=== PATIENT | female | born 1990 | race Caucasian/White ===

== ENCOUNTER → 2019-07-12 16:53 | Outpatient (BNVA) | payer OTHER, SELFPAY | PROVIDERS: Family Provider Family Medicine; PCP Family Medicine; Visit Provider Family Medicine | DX: R05 Cough (principal); R50.9 Fever, unspecified; R52 Pain, unspecified; J45.21 Mild intermittent asthma with (acute) exacerbation; J98.8 Other specified respiratory disorders; B97.89 Other viral agents as the cause of diseases classified elsewhere | CPT/HCPCS: 87804 ==

== ENCOUNTER 2020-01-19 20:58 | Observation (INO) | payer OTHER, BC, SELFPAY ==
[2020-01-19 21:15] VITALS: PULSE 92; RESP 18; TEMP 37.1; O2SAT 97
[2020-01-19 21:33] LABS: Basophils # 0.1 10^3/uL (0.0-0.1); Basophils % 0.6 %; Eosinophils # 0.1 10^3/uL (0.0-0.8); Eosinophils % 0.9 %; Hematocrit 42.3 % (37.0-47.0); Hemoglobin 14.4 g/dL (11.5-15.3); Lymphocytes # 1.6 10^3/uL (0.8-4.8); Lymphocytes % 9.8 %; Mean Corpuscular Hemoglobin 31.2 pg (28.0-34.0); Mean Corpuscular Volume 91.8 fL (81-99); Mean Platelet Volume 11.4 fL (7.4-10.4); Monocytes # 0.9 10^3/uL (0.2-0.9); Monocytes % 5.5 %; Neutrophils # 13.54 10^3/uL (1.8-7.7); Neutrophils % 82.8 %; Nucleated Red Blood Cells % 0 %; Platelet Count 200 10^3/cmm (130-400); Red Blood Count 4.61 10^6/uL (4.1-5.3); Red Cell Distribution Width 12.4 % (12.1-15.1); White Blood Count 16.3 10^3/uL (4.0-10.0)
--- NOTE | 2020-01-19 21:43 | CTR_ITS ---
PROCEDURE INFORMATION: Exam: CT Abdomen And Pelvis With Contrast Exam date and time: 01/19/2020 9:46 PM Age: 29 years old Clinical indication: Abdominal pain; Localized; Right lower quadrant (rlq); Prior surgery; Surgery type: , hysto; Additional info: Rlq pain TECHNIQUE: Imaging protocol: Computed tomography of the abdomen and pelvis with intravenous contrast. Radiation optimization: All CT scans at this facility use at least one of these dose optimization techniques: automated exposure control; mA and/or kV adjustment per patient size (includes targeted exams where dose is matched to clinical indication); or iterative reconstruction. Contrast material: OMNI 300; Contrast volume: 95 ml; Contrast route: INTRAVENOUS (IV); COMPARISON: CT abdomen pelvis w con* [id number] 11/24/2018 3:44 PM RADIATION DOSE METRICS: Total DLP (mGy-cm): 636.29 FINDINGS: Lungs: The lung bases are clear. Liver: The liver is slightly fatty but not enlarged. Gallbladder and bile ducts: Normal. No calcified stones. No ductal dilation. Pancreas: Normal. No ductal dilation. Spleen: Normal. No splenomegaly. Adrenals: Normal. No mass. Kidneys and ureters: Normal. No hydronephrosis. Stomach and bowel: Unremarkable. No obstruction. No mucosal thickening. Appendix: The appendix is enlarged up to 10 mm and has a thickened, enhancing wall. There is no appendicolith or perforation. Intraperitoneal space: No free fluid. Vasculature: Unremarkable. No abdominal aortic aneurysm. Lymph nodes: Unremarkable. No enlarged lymph nodes. Bladder: Unremarkable as visualized. Reproductive: Unremarkable as visualized. Bones/joints: Unremarkable. No acute fracture. Soft tissues: Unremarkable. CT/CT abdomen pelvis w con* [id number] IMPRESSION: Acute appendicitis. No perforation or abscess. Radiation Dose CTDIVOL = (mGy): DLP = 636.29 (mGy-cm)
[2020-01-19 21:45] LABS: HCG Qualitative Urine. Negative (Negative)
[2020-01-19 21:52] LABS: Alanine Aminotransferase 20 U/L (0-33); Alkaline Phosphatase 73 IU/L (35-105); Anion Gap 15.5 (5-19); Aspartate Amino Transferase 30 U/L (0-32); Blood Urea Nitrogen 13 mg/dL (6-20); Calcium 10.1 mg/dL (8.5-10.5); Carbon Dioxide 24 mmol/L (22-29); Chloride 103 mmol/L (98-107); Creatinine Clr Calc Pharmacy 81.5955; Globulin 2.5 g/dL (1.3-4.6); Glomerular Filtration Rate 73.5 mL/min (90-130); Glucose 94 mg/dL (65-115); Lipase 23 U/L (13-60); Osmolality Calculated 284 mOsm/kg (285-295); Potassium 3.5 mmol/L (3.5-5.1); Sodium 139 mmol/L (136-145); Total Bilirubin 0.4 mg/dL (0.15-1.2); Total Protein 7.5 g/dL (6.6-8.7)
--- NOTE | 2020-01-19 21:55 | W.ED.ABDPA2 ---
HPI - Abdominal Pain General: Chief Complaint: Abdominal Pain Stated Complaint: abd pain Time Seen by Provider: 01/19/20 21:38 Source: patient Mode of arrival: ambulatory Limitations: no limitations History of Present Illness: MD elicited complaint: abdominal pain Pertinent past history: none Onset (ago): hour(s) (3) Pain Consistency: constant Location: RLQ Severity: severe Quality: stabbing Radiation: none Migration to: no migration Exacerbating factors: other (Standing up and laying down flat) Relieving factors: other (Sitting up) Associated Symptoms: Reports anorexia, chills and nausea; Denies change in bowel habits, change in stool character, coffee ground emesis, constipation, GI cramping, diarrhea, dyspepsia, dysuria, fever(s), hematuria, hematemesis and vomiting Review of Systems General: Reports: 10 or more systems reviewed and unremarkable except in HPI and below Const: Reports: chills; Denies: fever(s) Eyes: Denies: change in vision or blurry vision ENMT: Denies: throat pain, enlarged tonsils, odynophagia, hoarseness, mouth pain or swelling of lips/tongue Card: Denies: palpitations, irregular heart rhythm, edema or swelling of feet/ankles Resp: Denies: dyspnea, productive cough or non-productive cough GI: Reports: abdominal pain and nausea; Denies: vomiting, hematemesis, coffee ground emesis, diarrhea, constipation, GI cramping, change in bowel habits or change in stool character : Denies: dysuria or hematuria Musc: Denies: neck pain, back pain or extremity swelling Skin/Breast: Denies: rash, pruritus or erythema Neuro: Denies: headache(s), numbness in extremities or weakness in extremities Endo: Denies: polyuria, polydipsia or tired all the time PFSH ED PFSH: Medical History Anxiety and depression Follows up with Dr. Ovalles for this. Does not see a therapist. States that symptoms are well-controlled on medication. Hot flashes due to surgical menopause Surgical History History of delivery X 2 2010-Performed by Dr Mcgovern at [facility] in [place], [place] 2017-performed by Dr. Ovalles at [facility] in [place] History of hysterectomy Total laparoscopic hysterectomy, bilateral salpingo-oophorectomy , cystoscopy for chronic pelvic pain and endometriosis on 03/23/[address] Plaza at [facility]. Pathology showed 174 g uterus with cervix with nabothian cysts and focal endometriosis on the peritoneum. The endometrium showed proliferative endometrium with adenomyosis in the myometrium. Bilateral tubes were benign with the left ovary showing an endometrioma and the right ovary being benign. History of laparoscopy Diagnostic laparoscopy with peritoneal biopsies done on 07/13/[address] Plaza at [facility] for chronic pelvic pain. During surgery signs of endometriosis-stage I were noted. Biopsies were done on the peritoneum which showed connective tissue without histopathological changes. Ovarian biopsy done showed hemorrhagic cysts consistent with endometriosis. No postoperative complications noted. History of tonsillectomy and adenoidectomy 09/09/05-tonsillectomy and adeniodectomy. dx: obstructive sleep apnea symptoms secondary to adenotonsillar hypertrophy. 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 [employer] Additional social history: Well balanced diet Physical Exam Const: COMMON NORMALS: average body habitus, patient oriented x3, no limitations, healthy appearing, alert and well nourished GENERAL APPEARANCE: in distress HENMT: COMMON NORMALS: normocephalic, atraumatic and moist oral mucous membranes HEAD & SCALP: normocephalic and atraumatic Neck/C-Spine: COMMON NORMALS: no meningeal signs and no JVD Resp: COMMON NORMALS: normal respiratory effort, No retractions, No use of accessory muscles, clear to auscultation bilaterally and percussion normal AUSCULTATION: clear to auscultation bilaterally PERCUSSION: percussion normal Cardio: COMMON NORMALS: no JVD, regular rate, regular rhythm, S1 normal heart sound present, S2 normal heart sound present, No gallops present (Cardio), No clicks present (Cardio), No murmurs present (Cardio), No rub (Cardio) and Peripheral pulses 2+ throughout RATE: regular rate RHYTHM: regular rhythm HEART SOUNDS: S1 normal heart sound present and S2 normal heart sound present PERIPHERAL PULSES: Peripheral pulses 2+ throughout GI: COMMON NORMALS: Normal to inspection, nondistended, normoactive bowel sounds present, Soft to palpation, No hepatosplenomegaly present, no masses and no bruits PALPATION: Yes Soft to palpation, Yes Tenderness to palpation present (GI) Details: RLQ, Yes No hepatosplenomegaly present and Yes Rebound tenderness present : COMMON NORMALS: Yes no CVA tenderness BLADDER/KIDNEY EXAM: Yes no CVA tenderness Back/Pelvis: COMMON NORMALS: no CVA tenderness Extremity: COMMON NORMALS: normal to inspection, full ROM, capillary refill normal, no calf tenderness and no pedal edema Neuro: COMMON NORMALS: patient oriented x3 SENSORIUM/ORIENTATION: Yes alert MENINGEAL SIGNS: Yes no meningeal signs Course Reevaluation(s): Reevaluation #1: Discussed her lab and imaging findings with her. Discussed that she has acute appendicitis and will need surgical intervention. Also discussed my conversation with the surgeon on-call. She voiced understanding and is in agreement with the plan. She is currently comfortable and does not require any more pain medicine. Her is on the phone and was part of the conversation. Time: 22:55 Consultations: Consultation #1: Discussed with Dr. Dong, surgeon. Admit the patient and he will see the patient in the morning. Time: 22:50 Vital Signs: Vital signs: Vital Signs Temperature 98.8 F 01/19/20 21:15 Pulse Rate 92 01/19/20 21:15 Respiratory Rate 20 H 01/19/20 22:22 Pulse Oximetry 97 01/19/20 21:15 MDM - Abdominal Pain MDM Narrative: Medical decision making narrative: 29-year-old female patient who came in with right lower quadrant abdominal pain of a few hours duration. Examination, CT scan findings are consistent with acute appendicitis and she is admitted to the general surgery service for further evaluation and surgery in the morning. Differential Diagnosis: Differential diagnosis abdominal pain: Likely acute appendicitis, calculus of kidney and diverticulitis Medical Records: Attestation: I reviewed the patient's medical records. Lab Data: Attestation: I reviewed the patient's lab results. Labs: Lab Results 01/19/20 01/19/20 01/19/20 Range/Units 21:15 21:15 21:30 WBC 16.3 H (4.0-10.0) 10^3/ uL RBC 4.61 (4.1-5.3) 10^6/u L Hgb 14.4 (11.5-15.3) g/dL Hct 42.3 (37.0-47.0) % MCV 91.8 (81-99) fL MCH 31.2 (28.0-34.0) pg MCHC 34.0 (30.0-36.0) g/dL RDW 12.4 (12.1-15.1) % Plt Count 200 (130-400) 10^3/c mm MPV 11.4 H (7.4-10.4) fL Neut % (Auto) 82.8 % Lymph % (Auto) 9.8 % Armstrong % (Auto) 5.5 % Eos % (Auto) 0.9 % Baso % (Auto) 0.6 % Neut # (Auto) 13.54 H (1.8-7.7) 10^3/u L Lymph # (Auto) 1.6 (0.8-4.8) 10^3/u L Armstrong # (Auto) 0.9 (0.2-0.9) 10^3/u L Eos # (Auto) 0.1 (0.0-0.8) 10^3/u L Baso # (Auto) 0.1 (0.0-0.1) 10^3/u L Nucleated RBC % (a uto) 0 % Nucleated RBCs # 0.0 /100WBC Sodium 139 (136-145) mmol/L Potassium 3.5 (3.5-5.1) mmol/L Chloride 103 (98-107) mmol/L Carbon Dioxide 24 (22-29) mmol/L Anion Gap 15.5 (5-19) BUN 13 (6-20) mg/dL Creatinine 0.9 (0.5-0.9) mg/dL GFR Calculation 73.5 L (90-130) mL/min Glucose 94 (65-115) mg/dL Calculated Osmolal ity 284 L (285-295) mOsm/k g Calcium 10.1 (8.5-10.5) mg/dL Total Bilirubin 0.4 (0.15-1.2) mg/dL AST 30 (0-32) U/L ALT 20 (0-33) U/L Alkaline Phosphata se 73 (35-105) IU/L Total Protein 7.5 (6.6-8.7) g/dL Albumin 5.0 (3.5-5.2) g/dL Globulin 2.5 (1.3-4.6) g/dL Lipase 23 (13-60) U/L HCG, Qual Negative (Negative) Imaging Data ^: CT Abd/Pel: Radiologist's impression: [place] [address] CT Scan Report Signed with Addenda Patient: Larry Melendrez #: [id number] : 1990Acct#:[id number] Age/Sex: Date: [birth year] [facility] Attending Dr: Ordering Provider/Ordering MD: Cody Castelan MD, [facility] Date of Service: 01/19/20 Procedure(s): CT abdomen pelvis w con* [id number] Accession Number(s): [id number] Report Number: [id number]/CT abdomen pelvis w con* [id number] The findings were verbally communicated via telephone conference with CODY CASTELAN at 10:48 PM CDT on 01/19/2020. The findings were acknowledged and understood. Radiation Dose CTDIVOL = (mGy): DLP = 636.29 (mGy-cm) Addendum Dictated By: Bharat Baumann MD Addendum Signed By: [facility]at [facility] Date/Time:01/19/20 [id number] Addendum Cosigned By: PROCEDURE INFORMATION: Exam: CT Abdomen And Pelvis With Contrast Exam date and time: 01/19/2020 9:46 PM Age: 29 years old Clinical indication: Abdominal pain; Localized; Right lower quadrant (rlq); Prior surgery; Surgery type: , hysto; Additional info: Rlq pain TECHNIQUE: Imaging protocol: Computed tomography of the abdomen and pelvis with intravenous contrast. Radiation optimization: All CT scans at this facility use at least one of these dose optimization techniques: automated exposure control; mA and/or kV adjustment per patient size (includes targeted exams where dose is matched to clinical indication); or iterative reconstruction. Contrast material: OMNI 300; Contrast volume: 95 ml; Contrast route: INTRAVENOUS (IV); COMPARISON: CT abdomen pelvis w con* [id number] 11/24/2018 3:44 PM RADIATION DOSE METRICS: Total DLP (mGy-cm): 636.29 FINDINGS: Lungs: The lung bases are clear. Liver: The liver is slightly fatty but not enlarged. Gallbladder and bile ducts: Normal. No calcified stones. No ductal dilation. Pancreas: Normal. No ductal dilation. Spleen: Normal. No splenomegaly. Adrenals: Normal. No mass. Kidneys and ureters: Normal. No hydronephrosis. Stomach and bowel: Unremarkable. No obstruction. No mucosal thickening. Appendix: The appendix is enlarged up to 10 mm and has a thickened, enhancing wall. There is no appendicolith or perforation. Intraperitoneal space: No free fluid. Vasculature: Unremarkable. No abdominal aortic aneurysm. Lymph nodes: Unremarkable. No enlarged lymph nodes. Bladder: Unremarkable as visualized. Reproductive: Unremarkable as visualized. Bones/joints: Unremarkable. No acute fracture. Soft tissues: Unremarkable. CT/CT abdomen pelvis w con* [id number] IMPRESSION: Acute appendicitis. No perforation or abscess. Radiation Dose CTDIVOL = (mGy): DLP = 636.29 (mGy-cm) Dictated By:Bharat Baumann MD Signed By:Bharat Baumannigned Date/Time:01/19/202246 DD/ 45 Discharge Plan Discharge Patient Disposition: Admitted As Inpatient Clinical Impression: Acute appendicitis Condition: Stable Prescriptions: No Action citalopram 20 mg tablet 20 mg PO DAILY RF: 0 albuterol sulfate 2.5 mg /3 mL (0.083 %) solution for nebulization 2.5 mg INHALATION Q4H MDD 4 vials PRN (Reason: shortness of breath or wheezing) Qty: 75 RF: 0 estradiol 1 mg tablet 1 mg PO DAILY Qty: 30 RF: 6 Referrals: Ayo Ovalles MD [Primary Care Provider] - Coding Level of Care Code 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
[2020-01-19] MEDS: ondansetron 2 mg/ML SDV 2 mL 4 MG IVP (22:15)
[2020-01-19] MEDS: sodium chloride 0.9% 1,000 ML 999 ML IV (22:16)
[2020-01-19 22:22] VITALS: RESP 20
[2020-01-19] MEDS: fentaNYL 50 mcg/mL INJ 2mL IVP (22:22)
[2020-01-19] MEDS: iohexol 300 mg/mL 100 mL Btl IV (22:28)
[2020-01-19 23:04] LABS: Lactate (Lactic Acid level) 0.9 mmol/L (0.5-2.2)
[2020-01-19] MEDS: piperacillin-tazobactam 3.375 GM in sodium chloride 0.9% (plus) 50 ML IV (23:35)
[2020-01-19 23:51] LABS: Add Urine Microscopic? NO
[2020-01-20] VITALS (16 sets, daily range): BP systolic 99–141; BP diastolic 63–87; PULSE 59–87; RESP 15–21; TEMP 36.4–36.8; O2SAT 94–100
[2020-01-20] MEDS: fentaNYL 50 mcg/mL INJ 2mL IVP (00:04)
[2020-01-20 00:09] LABS: Bilirubin Urine Neg (NEGATIVE); Blood Urine Neg (Negative); Glucose Urine UA Norm (Normal); Ketones Urine Negative (Negative); Leukocyte Esterase Urine Negative (Negative); Nitrate Urine Negative (Negative); Protein Urine Neg (Negative); Specific Gravity, Urine 1.005 (1.005-1.030); Urine Appearance Clear (CLEAR); Urine Color Colorless (Yellow); Urobilinogen Urine Norm (Negative); pH Urine 6.5 (5-7)
[2020-01-20] MEDS: ondansetron 2 mg/ML SDV 2 mL 4 MG IVP (00:10)
[2020-01-20 00:30] LABS: C Reactive Protein 3.7 mg/L (0.0-4.9)
[2020-01-20] MEDS: sodium chloride 0.9% 1,000 ML 150 ML IV ×2 (01:38→03:45)
[2020-01-20 03:43] LABS: Basophils # 0.1 10^3/uL (0.0-0.1); Basophils % 0.4 %; Eosinophils # 0.2 10^3/uL (0.0-0.8); Eosinophils % 1.5 %; Hematocrit 36.2 % (37.0-47.0); Hemoglobin 11.9 g/dL (11.5-15.3); Lymphocytes # 2.4 10^3/uL (0.8-4.8); Lymphocytes % 20.7 %; Mean Corpuscular HGB Conc 32.9 g/dL (30.0-36.0); Mean Corpuscular Hemoglobin 30.2 pg (28.0-34.0); Mean Corpuscular Volume 91.9 fL (81-99); Mean Platelet Volume 11.7 fL (7.4-10.4); Monocytes # 0.6 10^3/uL (0.2-0.9); Monocytes % 5.3 %; Neutrophils # 8.46 10^3/uL (1.8-7.7); Neutrophils % 71.8 %; Nucleated Red Blood Cells % 0 %; Platelet Count 169 10^3/cmm (130-400); Red Blood Count 3.94 10^6/uL (4.1-5.3); Red Cell Distribution Width 12.3 % (12.1-15.1); White Blood Count 11.8 10^3/uL (4.0-10.0)
[2020-01-20] MEDS: HYDROmorphone 1 mg/mL INJ 1 mL 2 MG IVP (03:44)
[2020-01-20 04:08] LABS: Anion Gap 11.9 (5-19); Blood Urea Nitrogen 10 mg/dL (6-20); Calcium 8.4 mg/dL (8.5-10.5); Carbon Dioxide 23 mmol/L (22-29); Chloride 107 mmol/L (98-107); Glomerular Filtration Rate 98.3 mL/min (90-130); Glucose 96 mg/dL (65-115); Osmolality Calculated 282 mOsm/kg (285-295); Potassium 3.9 mmol/L (3.5-5.1); Sodium 138 mmol/L (136-145)
[2020-01-20] MEDS: piperacillin-tazobactam 3.375 GM in sodium chloride 0.9% (plus) 50 ML IV (06:22)
--- NOTE | 2020-01-20 06:54 | P.HP_ITS ---
Providers/Chief Complaint Admitting Physician: Seth Dnog MD Primary Care Provider: Ayo Ovalles MD Chief Complaint: abd pain History of Present Illness Rosa Melendrez is a 29 year old female who was in her usual state of health until around 6:30 PM last night when she noticed the fairly abrupt onset of some right lower quadrant abdominal pain. This was followed by nausea but no vomiting. She says that she had some chills but never did have a fever. Her pain persisted and she came to the emergency room last night. A CAT scan showed changes consistent with acute appendicitis. Review of Systems General: Reports: 10 or more systems reviewed and unremarkable except in HPI and below Const: Reports: chills; Denies: fever(s) GI: Reports: abdominal pain and nausea; Denies: vomiting or change in stool character Psych: Reports: anxiety Medications/Allergies Home Medications Medication Instructions Recorded Confirmed Last Taken Type citalopram 20 mg tablet 20 mg PO DAILY tab 07/07/19 01/20/20 01/18/20 20:00 History estradiol 1 mg tablet 1 mg PO DAILY #30 tab 10/04/19 01/20/20 01/18/20 20:00 Rx Allergies Allergy/AdvReac Type Severity Reaction Status Date / Time morphine AdvReac ADR-Shakine Verified 01/20/20 03:54 ss PFSH Acute PFSH: Medical History (Updated 01/20/20 @ 06:58 by Seth Dong MD) Anxiety and depression Follows up with Dr. Ovalles for this. Does not see a therapist. States that symptoms are well-controlled on medication. History of endometriosis Hot flashes due to surgical menopause Surgical History History of delivery X 2 2010-Performed by Dr Mcgvoern at [facility] in [place], [place] 2017-performed by Dr. Ovalles at [facility] in [place] History of hysterectomy Total laparoscopic hysterectomy, bilateral salpingo-oophorectomy , cystoscopy for chronic pelvic pain and endometriosis on 03/23/[address] Plaza at [facility]. Pathology showed 174 g uterus with cervix with nabothian cysts and focal endometriosis on the peritoneum. The endometrium showed proliferative endometrium with adenomyosis in the myometrium. Bilateral tubes were benign with the left ovary showing an endometrioma and the right ovary being benign. History of laparoscopy Diagnostic laparoscopy with peritoneal biopsies done on 07/13/[address] Plaza at [facility] for chronic pelvic pain. During surgery signs of endo metriosis-stage I were noted. Biopsies were done on the peritoneum which showed connective tissue without histopathological changes. Ovarian biopsy done showed hemorrhagic cysts consistent with endometriosis. No postoperative complications noted. History of tonsillectomy and adenoidectomy 09/09/05-tonsillectomy and adeniodectomy. dx: obstructive sleep apnea symptoms secondary to adenotonsillar hypertrophy. 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 Additional social history: Well balanced diet Vitals/I&O/Wt Last Vital Signs Temp 97.7 F 01/20/20 03:56 Pulse 59 L 01/20/20 03:56 Resp 18 01/20/20 03:56 BP 99/64 01/20/20 03:56 Pulse Ox 99 01/20/20 03:56 01/19/20 01/19/20 01/20/20 14:59 22:59 06:59 Intake Total 317.5 / 317.5 Output Total 300 / 300 Balance 17.5 / 17.5 Weight last 48 hrs Weight 146 lb Physical Exam Narrative: EXAM NARRATIVE: The patient was encountered in her hospital room. She does not appear to be in any distress. The pupils are equal. No carotid bruits are heard. The lungs are clear anteriorly. The heart is regular. The abdomen is mildly obese and reveals bowel sounds but they are hypoactive. Rovsing's sign is positive. The point of maximum tenderness is in the right lower quadrant at McBurney's point or slightly below. No obvious masses are palpated. The extremities reveal no edema. Neurologically the patient appears to be grossly intact. Data : 01/20/20 03:00 01/20/20 03:00 CT Abd/Pel: Radiologist's impression: CT abdomen/pelvis 01/19/2020 iMPRESSION: Acute appendicitis. No perforation or abscess. A&P Assessment and plan (1) Acute appendicitis: I agree with the CT assessment of acute appendicitis. I discussed appendicitis with the patient in detail. Both medical and surgical methods of management were gone over. Surgical risks of bleeding, infection, internal organ injury, etc. were all discussed. The patient seems to understand and would prefer to undergo an appendectomy today. The patient has been without any solid food since yesterday. I will make arrangements for a laparoscopic or possibly open appendectomy today. Status: Acute Qualifiers: Acute appendicitis type: with localized peritonitis Appendicitis abscess presence: without abscess Appendicitis gangrene presence: without grace grene Appendicitis perforation presence: without perforation Qualified Code(s): K35.30 - Acute appendicitis with localized peritonitis, without perf oration or gangrene Attestations Medical Necessity Statement*: Based on my medical assessment, presenting symptoms and consideration of the scope of surgical therapy, I expect this patient will require treatment in the hospital for a period of time spanning less than 2 midnights, and is therefore being placed in observation status. 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
[2020-01-20] MEDS: sodium chloride 0.9% 1,000 ML 30 ML IV (07:53)
--- NOTE | 2020-01-20 08:34 | P.ANESASSM_ITS ---
Pre-Anesthetic Assessment Pre-Anesthetic Assessment: Height/Weight: Height 1.57 m Weight 66.224 kg Temp Pulse Resp BP Pulse Ox 97.6 F 80 18 109/66 100 01/20/20 07:37 01/20/20 07:37 01/20/20 07:37 01/20/20 07:37 01/20/20 07:37 Preop Diagnosis: appy Proposed Procedure: Operation Date: 01/20/20 11:10 Proposed Procedures p Laparoscopic Appendectomy(Not Applicable) - Seth Dong MD Familial anesthetic complications: none Was Beta Lily taken within 24 hours: N/A Last intake: Intake Last Liquid Date 01/19/20 Last Liquid Time 19:00 Last Solid Date 01/19/20 Last Solid Time 12:00 Last Intake: 19:00 Social: Social History: Tobacco and No alcohol Packs per day: 1/2 Pack years: 15 Exam: Pre-Anes Outpt Exam: alert, oriented x 3, clear to auscultation bilaterally and regular rate & rhythm Airway: Submandibular: WNL Cervical ROM: WNL MP: 1 Dentition: Full Pulmonary: Pulmonary: None reported CV/HEM: CV/HEM: None reported : : None reported Hepatic: Hepatic: None reported GI: GI: None reported Metabolic: Metabolic: None reported Musc/skel: Musc/skel: None reported Neuropsych: Neuropsych: Anxiety and Depression Anesthetic Plan: ASA status: 2E Anesthesia: Anesthesia Evaluation and General Risk of > 500 ml blood loss (7ml/kg in children): No Meds/Allergies Current Medications: Current Medications Generic Name Dose Route Start Last Admin Trade Name Freq PRN Reason Stop Dose Admin Sodium Chloride 1,000 mls @ 150 m ls/hr 01/19/20 23:00 01/20/20 03:45 Sodium Chloride 0.9% IV 150 mls/hr .Q6H40M ROSA Administration Sodium Chloride 1,000 mls @ 30 ml s/hr 01/20/20 08:00 01/20/20 07:53 Sodium Chloride 0.9% IV 30 mls/hr .Q24H ROSA Administration Ondansetron HCl 4 mg 01/19/20 22:54 01/20/20 00:10 Zofran IVP 4 mg Q6H PRN Administration NAUSEA AND VOMITI NG PFSH Anesthesia PFSH: Medical History (Updated 01/20/20 @ 06:58 by Seth Dong MD) Anxiety and depression Follows up with Dr. Ovalles for this. Does not see a therapist. States that symptoms are well-controlled on medication. History of endometriosis Hot flashes due to surgical menopause Surgical History History of delivery X 2 2010-Performed by Dr Mcgovern at [facility] in [place], [place] 2017-performed by Dr. Ovalles at [facility] in [place] History of hysterectomy Total laparoscopic hysterectomy, bilateral salpingo-oophorectomy , cystoscopy for chronic pelvic pain and endometriosis on 03/23/[address] Plaza at [facility]. Pathology showed 174 g uterus with cervix with nabothian cysts and focal endometriosis on the peritoneum. The endometrium showed proliferative endometrium with adenomyosis in the myometrium. Bilateral tubes were benign with the left ovary showing an endometrioma and the right ovary being benign. History of laparoscopy Diagnostic laparoscopy with peritoneal biopsies done on 07/13/[address] Plaza at [facility] for chronic pelvic pain. During surgery signs of endometriosis-stage I were noted. Biopsies were done on the peritoneum which showed connective tissue without histopathological changes. Ovarian biopsy done showed hemorrhagic cysts consistent with endometriosis. No postoperative complications noted. History of tonsillectomy and adenoidectomy 09/09/05-tonsillectomy and adeniodectomy. dx: obstructive sleep apnea symptom s secondary to adenotonsillar hypertrophy. 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 [employer] Additional social history: Well balanced diet Data Anesthesia CBC & Chem 7: 01/20/20 03:00 01/20/20 03:00 Other Labs: Laboratory Results - last 48 hr 01/19/20 01/19/20 01/19/20 21:15 21:15 21:15 WBC 16.3 H RBC 4.61 Hgb 14.4 Hct 42.3 MCV 91.8 MCH 31.2 MCHC 34.0 RDW 12.4 Plt Count 200 MPV 11.4 H Neut % (Auto) 82.8 Lymph % (Auto) 9.8 [place] % (Auto) 5.5 Eos % (Auto) 0.9 Baso % (Auto) 0.6 Neut # (Auto) 13.54 H Lymph # (Auto) 1.6 [place] # (Auto) 0.9 Eos # (Auto) 0.1 Baso # (Auto) 0.1 Nucleated RBC % (auto) 0 Nucleated RBCs # 0.0 Sodium 139 Potassium 3.5 Chloride 103 Carbon Dioxide 24 Anion Gap 15.5 BUN 13 Creatinine 0.9 GFR Calculation 73.5 L Glucose 94 Calculated Osmolality 284 L Lactate Calcium 10.1 Total Bilirubin 0.4 AST 30 ALT 20 Alkaline Phosphatase 73 C-Reactive Protein 3.7 Total Protein 7.5 Albumin 5.0 Globulin 2.5 Lipase 23 HCG, Qual Urine Color Urine Appearance Urine pH Ur Specific [place] Urine Protein Urine Glucose (UA) Urine Ketones Urine Blood Urine Nitrate Urine Bilirubin Urine Urobilinogen Ur Leukocyte Esterase 01/19/20 01/19/20 01/19/20 21:20 21:30 21:56 WBC RBC Hgb Hct MCV MCH MCHC RDW Plt Count MPV Neut % (Auto) Lymph % (Auto) [place] % (Auto) Eos % (Auto) Baso % (Auto) Neut # (Auto) Lymph # (Auto) [place] # (Auto) Eos # (Auto) Baso # (Auto) Nucleated RBC % (auto) Nucleated RBCs # Sodium Potassium Chloride Carbon Dioxide Anion Gap BUN Creatinine GFR Calculation Glucose Calculated Osmolality Lactate 0.9 Calcium Total Bilirubin AST ALT Alkaline Phosphatase C-Reactive Protein Total Protein Albumin Globulin Lipase HCG, Qual Negative Urine Color Colorless Urine Appearance Clear Urine pH 6.5 Ur Specific [place] 1.005 Urine Protein Neg Urine Glucose (UA) Norm Urine Ketones Negative Urine Blood Neg Urine Nitrate Negative Urine Bilirubin Neg Urine Urobilinogen Norm Ur Leukocyte Esterase Negative 01/20/20 01/20/20 03:00 03:00 WBC 11.8 H RBC 3.94 L Hgb 11.9 Hct 36.2 L MCV 91.9 MCH 30.2 MCHC 32.9 RDW 12.3 Plt Count 169 MPV 11.7 H Neut % (Auto) 71.8 Lymph % (Auto) 20.7 [place] % (Auto) 5.3 Eos % (Auto) 1.5 Baso % (Auto) 0.4 Neut # (Auto) 8.46 H Lymph # (Auto) 2.4 [place] # (Auto) 0.6 Eos # (Auto) 0.2 Baso # (Auto) 0.1 Nucleated RBC % (auto) 0 Nucleated RBCs # 0.0 Sodium 138 Potassium 3.9 Chloride 107 Carbon Dioxide 23 Anion Gap 11.9 BUN 10 Creatinine 0.7 GFR Calculation 98.3 Glucose 96 Calculated Osmolality 282 L Lactate Calcium 8.4 L Total Bilirubin AST ALT Alkaline Phosphatase C-Reactive Protein Total Protein Albumin Globulin Lipase HCG, Qual Urine Color Urine Appearance Urine pH Ur Specific [place] Urine Protein Urine Glucose (UA) Urine Ketones Urine Blood Urine Nitrate Urine Bilirubin Urine Urobilinogen Ur Leukocyte Esterase Cardiac Studies: No Data to Display
[2020-01-20] MEDS: metroNIDAZOLE IV 500 MG/100 ML PREMIX 100 MG IV (09:33)
--- NOTE | 2020-01-20 09:53 | P.OP_ITS ---
Operative Report Date of procedure: January 20, 2020 Pre-op Diagnosis: Acute appendicitis. Post-op diagnosis: same Procedure Done: Laparoscopic appendectomy. Specimens removed/disposition: Appendix. Surgeon: Seth Dong Anesthesia: General Estimated blood loss (mL): 5 Complications: None. Condition: stable Disposition: PACU Procedure: The patient was brought to the Operating Room and was placed in a supine position on the operating room table. General endotracheal anesthesia was induced. The abdomen was prepped and draped in a sterile fashion. A small vertical incision was carried out in the inferior aspect of the umbilicus. Blunt dissection was carried out down to the fascia, which was grasped with a Miguel clamp. A stay suture of 0 Vicryl was placed on either side of the midline and the midline fascia was incised. The underlying peritoneum was opened bluntly and the Brendan port was placed directly into the peritoneal cavity and was held in place with the inflatable balloon. The peritoneal cavity was insufflated with carbon dioxide. The laparoscope was used to inspect the peritoneal cavity. No gross abnormalities were initially noted. Two 5-millimeter ports were placed in the left lower quadrant under direct vision. The patient was tilted in a Trendelenburg position and slightly to the left side. A laparoscopic [place] was used to elevate the cecum and the appendix was identified. The appendix was dilated and had injected blood vessels on its surface. The mesoappendix was divided using cautery to maintain hemostasis at the base of the appendix. The base of the appendix appeared healthy and was divided using an endoscopic stapler. The appendix was removed from the peritoneal cavity after being placed in a laparoscopic bag. The right lower quadrant and pelvis were irrigated. The staple line on the cecum was identified and appeared to be in good condition. The Brendan port was removed from the umbilical site and the stay sutures of Vicryl were tied to each other at the umbilicus[], closing the fascial defect so that it was airtight. A final round of irrigation was carried out in the right lower quadrant and the pelvis. No ongoing problems were seen. The remaining ports were removed from the abdominal wall as the pneumoperitoneum was evacuated. All skin incisions were closed using inverted interrupted sutures of 4-0 Vicryl. Benzoin and Steri-Strips were placed over the incisions and Band-Aids followed. The patient was taken to the Recovery Room in stable condition postoperatively.
[2020-01-20] MEDS: HYDROcodone-acetaminophen 5-325 mg Tablet PO (11:07)
[2020-01-20] MEDS: citalopram 20 mg Tablet PO (11:08)
[2020-01-20] MEDS: D5-NS 0.45% + KCL 20 mEq 20 MEQ/1,000 ML BAG 100 MEQ IV (11:08)
[2020-01-20] MEDS: heparin 5,000 unit/mL INJ 1 mL 5000 UNIT SUBCUT (12:30)
[2020-01-20] MEDS: estradiol 1 mg Tablet PO (12:30)
--- NOTE | 2020-01-20 13:44 | P.DS_ITS ---
Discharge Providers Date of Admission: 01/19/20 22:57 Date of Discharge: January 20, 2020 Attending Provider at Admission: Seth Dong MD Attending Provider at Discharge: Seth Dong MD Primary Care Provider: Ayo Ovalles MD Diagnoses at Discharge Discharge Diagnosis (1) Acute appendicitis: Status: Acute Qualifiers: Acute appendicitis type: with localized peritonitis Appendicitis abscess presence: without abscess Appendicitis gangrene presence: without gangrene Appendicitis perforation presence: without perforation Qualified Code(s): K35.30 - Acute appendicitis with localized peritonitis, without p erforation or gangrene Reason for Visit Reason for Visit: abd pain Hospital Course Discharge Summary: This is a 29-year-old white female who presented to the emergency room with the onset of right lower quadrant abdominal pain. A CAT scan showed changes consistent with acute appendicitis. She underwent a laparoscopic appendectomy the same day. By that afternoon she was already feeling better and was anxious to go home. Her wounds looked good. She was instructed with respect to wound care, activity limitations, diet, etc. Arrangements will be made for the patient to follow-up in my office as an outpatient. Physical Exam Narrative: EXAM NARRATIVE: Vital signs are stable. Bowel sounds are present. All laparoscopic wounds and overlying Band-Aids look good. She has the expected amount of tenderness. Discharge Data Data Completed and Pending: Completed Studies During Hospitalization Category Date Time Status CT abdomen pelvis w con* [id number] Stat Cat Scan 01/19/20 21:43 Completed Pending at discharge Category Date Time Status ES surgery / GI i mages Routine Exams 01/20/20 07:53 Ordered Pathology: Surgic al [PTH] Routine Pth 01/20/20 10:12 Received Labs from last 24 hours 01/20/20 01/20/20 01/19/20 03:00 03:00 21:56 WBC 11.8 H RBC 3.94 L Hgb 11.9 Hct 36.2 L MCV 91.9 MCH 30.2 MCHC 32.9 RDW 12.3 Plt Count 169 MPV 11.7 H Neut % (Auto) 71.8 Lymph % (Auto) 20.7 [place] % (Auto) 5.3 Eos % (Auto) 1.5 Baso % (Auto) 0.4 Neut # (Auto) 8.46 H Lymph # (Auto) 2.4 [place] # (Auto) 0.6 Eos # (Auto) 0.2 Baso # (Auto) 0.1 Nucleated RBC % (a uto) 0 Nucleated RBCs # 0.0 Sodium 138 Potassium 3.9 Chloride 107 Carbon Dioxide 23 Anion Gap 11.9 BUN 10 Creatinine 0.7 GFR Calculation 98.3 Glucose 96 Calculated Osmolal ity 282 L Lactate 0.9 Calcium 8.4 L Total Bilirubin AST ALT Alkaline Phosphata se C-Reactive Protein Total Protein Albumin Globulin Lipase HCG, Qual Urine Color Urine Appearance Urine pH Ur Specific Grav[place] y Urine Protein Urine Glucose (UA) Urine Ketones Urine Blood Urine Nitrate Urine Bilirubin Urine Urobilinogen Ur Leukocyte Shelley ase 01/19/20 01/19/20 01/19/20 21:30 21:20 21:15 WBC RBC Hgb Hct MCV MCH MCHC RDW Plt Count MPV Neut % (Auto) Lymph % (Auto) [place] % (Auto) Eos % (Auto) Baso % (Auto) Neut # (Auto) Lymph # (Auto) [place] # (Auto) Eos # (Auto) Baso # (Auto) Nucleated RBC % (a uto) Nucleated RBCs # Sodium Potassium Chloride Carbon Dioxide Anion Gap BUN Creatinine GFR Calculation Glucose Calculated Osmolal ity Lactate Calcium Total Bilirubin AST ALT Alkaline Phosphata se C-Reactive Protein 3.7 Total Protein Albumin Globulin Lipase HCG, Qual Negative Urine Color Colorless Urine Appearance Clear Urine pH 6.5 Ur Specific Gravit y 1.005 Urine Protein Neg Urine Glucose (UA) Norm Urine Ketones Negative Urine Blood Neg Urine Nitrate Negative Urine Bilirubin Neg Urine Urobilinogen Norm Ur Leukocyte Shelley ase Negative 01/19/20 01/19/20 21:15 21:15 WBC 16.3 H RBC 4.61 Hgb 14.4 Hct 42.3 MCV 91.8 MCH 31.2 MCHC 34.0 RDW 12.4 Plt Count 200 MPV 11.4 H Neut % (Auto) 82.8 Lymph % (Auto) 9.8 [place] % (Auto) 5.5 Eos % (Auto) 0.9 Baso % (Auto) 0.6 Neut # (Auto) 13.54 H Lymph # (Auto) 1.6 [place] # (Auto) 0.9 Eos # (Auto) 0.1 Baso # (Auto) 0.1 Nucleated RBC % (a uto) 0 Nucleated RBCs # 0.0 Sodium 139 Potassium 3.5 Chloride 103 Carbon Dioxide 24 Anion Gap 15.5 BUN 13 Creatinine 0.9 GFR Calculation 73.5 L Glucose 94 Calculated Osmolal ity 284 L Lactate Calcium 10.1 Total Bilirubin 0.4 AST 30 ALT 20 Alkaline Phosphata se 73 C-Reactive Protein Total Protein 7.5 Albumin 5.0 Globulin 2.5 Lipase 23 HCG, Qual Urine Color Urine Appearance Urine pH Ur Specific Gravit y Urine Protein Urine Glucose (UA) Urine Ketones Urine Blood Urine Nitrate Urine Bilirubin Urine Urobilinogen Ur Leukocyte Shelley ase Vitals: Last Vital Signs Temp 98.0 F 01/20/20 11:35 Pulse 60 01/20/20 11:35 Resp 16 01/20/20 11:35 BP 104/67 01/20/20 11:35 Pulse Ox 94 01/20/20 11:35 Discharge Plan Discharge Patient Disposition: Home Condition: Stable Prescriptions: New hydrocodone-acetaminophen 5-325 mg tablet 1 - 2 tab PO Q5H PRN (Reason: pain) Qty: 30 RF: 0 Continued citalopram 20 mg tablet 20 mg PO DAILY RF: 0 estradiol 1 mg tablet 1 mg PO DAILY Qty: 30 RF: 6 Discharge Orders: Discharge Order (Routine); Ordered 01/20/20 Ordered By: Seth Dong Referrals: Seth Dong MD [Physician] - 2 weeks Ayo Ovalles MD [Primary Care Provider] - Discharge Diet: Advance as tolerated Discharge Activity: Limit activity as instructed Activity Restrictions/Additional Instructions: 1. Discharge to home today. 2. Appointment to see Dr. Dong in 10-14 days. 3. Bandages / bandaids off tomorrow, leave Steri-Strip(s) on, may shower. 4. [place] 5/325 1-2 tablets by mouth every 5 hours as needed for pain. #30, no refills. No lifting over 20 pounds, no repetitive bending or twisting, no strenuous pushing / pulling or other heavy activity. Ambulate regularly. May go up and down steps if needed. Discharge Attestations Time Spent in Discharge Care*: less than 30 min Quality Metrics Clinical Quality Measures During this hospital stay, did patient experience: None Coding Level of Care Code Acute Sales Product Manager for [facility] Fwd Diagnoses Acute appendicitis K35.30 Acute appendicitis type: with localized peritonitis Appendicitis abscess presence: without abscess Appendicitis gangrene presence: without gangrene Appendicitis perforation presence: without perforation
--- NOTE | 2020-01-21 14:26 | PC.RESP ---
Smoking Cessation information sent to patient.
== END 2020-01-20 15:10 | disposition home or self-care (01) ==
LOC: ER 23:09 → MEDSURG 01-20 06:55
PROVIDERS: Emergency Medicine; Family Medicine; Admitting Provider Surgery; PCP Family Medicine; Visit Provider Surgery
PROC: 0DTJ4ZZ Resection of Appendix, Percutaneous Endoscopic Approach (ICD-10-PCS; CPT 44970; principal; 2020-01-20 11:10)
DX: K35.80 Unspecified acute appendicitis (principal); F17.210 Nicotine dependence, cigarettes, uncomplicated; F41.9 Anxiety disorder, unspecified; F32.9 Major depressive disorder, single episode, unspecified
CPT/HCPCS: 44970; 12345; 36415; 74177; 80048; 80053; 81003; 81025; 83605; 83690; 85025; 86140; 88304; 96361; 96365; 96372; 96375; 99283; G0378; J0690; J1100; J1170; J1644; J2405; J2543; J2704; J2710; J3010; J3490; J7030; J8499; Q9967; S0030

== ENCOUNTER 2020-04-05 21:37 | Emergency (ER) | payer OTHER, SELFPAY ==
--- NOTE | 2020-04-05 21:41 | XR_ITS ---
WS: [id number] Portable AP upright chest, 04/05/2020 Clinical Data: cough Comparison: PA and lateral chest, 07/07/2009. Findings: No nodules, masses or effusions are seen. The heart is normal. The pulmonary vascularity is not increased. No pneumonia or pneumothorax is seen. XR/XR chest 1V portable [id number] Impression: Negative chest.
[2020-04-05 21:56] VITALS: BP 119/82; PULSE 98; RESP 17; TEMP 36.7; O2SAT 99; BMI 27.4
--- NOTE | 2020-04-05 22:20 | ECG_ITS ---
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 Measurements Intervals [place] Rate: 73 P: 72 UT: 151 QRS: 76 QRSD: 110 T: 67 QT: 390 QTc: 431 Interpretive Statements SINUS RHYTHM INCOMPLETE RIGHT BUNDLE BRANCH BLOCK [90+ ms QRS DURATION, TERMINAL R IN V1/V2, 40+ ms S IN I/aVL/V4/V5/V6] No previous ECG available for comparison Electronically Signed On 04-06-2020 9:34:09 CDT by Austen Ramos M.D. [id number]
--- NOTE | 2020-04-05 22:33 | PC.NURSE ---
EKG done at 2230 and shown to ER doctor
--- NOTE | 2020-04-05 22:46 | W.ED.COVID ---
HPI - COVID General: Chief Complaint: COVID symptoms Stated Complaint: sob/cough/ overall not feeling good Time Seen by Provider: 04/05/20 22:04 Source: patient Mode of arrival: ambulatory Limitations: no limitations Triage information: Has fever, cough or shortness of breath. Exposure to COVID + person last 14 days History of Present Illness: HPI Narrative: 29-year-old female who states that over the last 10 days she has been having a cough along with some chest pain and just not feeling well. She states she was around a friend that tested positive for Covid and concerned she has Covid. She denies any worsening improving factors. Patient is currently resting comfortably and pulse ox is 99% on the room on room air and she is afebrile. She has had no vomiting or diarrhea. COVID 19 common symptoms: positive non-productive cough and dyspnea; negative fever(s), chills, body aches, headache(s), throat pain, nausea, vomiting or diarrhea COVID 19 other sytmptoms: negative chest pain COVID Results: No Data to Display Review of Systems Const: Denies: fever(s), chills, body aches or change in appetite Eyes: Denies: blurry vision or eye discomfort ENMT: Denies: throat pain or dental pain Card: Denies: chest pain Resp: Reports: dyspnea and non-productive cough GI: Denies: abdominal pain, nausea, vomiting or diarrhea : Denies: dysuria Musc: Denies: neck pain or back pain Skin/Breast: Denies: rash Neuro: Denies: headache(s) Psych: Denies: depression Nathan/Lymph: Denies: easy bruising All/Imm: Denies: urticaria PFSH ED PFSH: Medical History Anxiety and depression Follows up with Dr. Ovalles for this. Does not see a therapist. States that symptoms are well-controlled on medication. History of endometriosis Hot flashes due to surgical menopause Surgical History History of delivery X 2 2010-Performed by Dr Mcgovern at [facility] in [place], [place] 2017-performed by Dr. Ovalles at [facility] in [place] History of hysterectomy Total laparoscopic hysterectomy, bilateral salpingo-oophorectomy , cystoscopy for chronic pelvic pain and endometriosis on 03/23/[address] Plaza at [facility]. Pathology showed 174 g uterus with cervix with nabothian cysts and focal endometriosis on the peritoneum. The endometrium showed proliferative endometrium with adenomyosis in the myometrium. Bilateral tubes were benign with the left ovary showing an endometrioma and the right ovary being benign. History of laparoscopy Diagnostic laparoscopy with peritoneal biopsies done on 07/13/[address] Plaza at [facility] for chronic pelvic pain. During surgery signs of endometriosis-stage I were noted. Biopsies were done on the peritoneum which showed connective tissue without histopathological changes. Ovarian biopsy done showed hemorrhagic cysts consistent with endometriosis. No postoperative complications noted. History of tonsillectomy and adenoidectomy 09/09/05-tonsillectomy and adeniodectomy. dx: obstructive sleep apnea symptoms secondary to adenotonsillar hypertrophy. 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 [employer] Additional social history: Well balanced diet Physical Exam Const: COMMON NORMALS: no acute distress, patient oriented x3 and healthy appearing HENMT: COMMON NORMALS: normocephalic and atraumatic HEAD & SCALP: normocephalic and atraumatic Eye: COMMON NORMALS: Equal, round and reactive pupils present and EOMs intact bilaterally PUPIL: Yes Equal, round and reactive pupils present Neck/C-Spine: COMMON NORMALS: full ROM and supple Chest: COMMONS NORMALS: normal inspection of the chest and normal palpation of entire chest wall Resp: COMMON NORMALS: normal respiratory effort, No retractions, No use of accessory muscles and clear to auscultation bilaterally AUSCULTATION: clear to auscultation bilaterally Cardio: COMMON NORMALS: regular rate, regular rhythm and No murmurs present (Cardio) RATE: regular rate RHYTHM: regular rhythm GI: COMMON NORMALS: Normal to inspection, nondistended, normoactive bowel sounds present, Soft to palpation, non-tender and no masses PALPATION: Yes Soft to palpation Extremity: COMMON NORMALS: normal to inspection and full ROM Neuro: COMMON NORMALS: patient oriented x3, moves all extremities and no focal motor deficits Psych: COMMON NORMALS: mental status grossly normal, Normal thought process present and cooperative THOUGHT PROCESS: Normal thought process present Skin: COMMON NORMALS: no rashes or lesions noted and no wounds GENERAL SKIN EXAM: no rashes or lesions noted Course Vital Signs: Vital signs: Vital Signs Temperature 98.1 F 04/05/20 21:56 Pulse Rate 98 04/05/20 21:56 Respiratory Rate 17 04/05/20 21:56 Blood Pressure 119/82 04/05/20 21:56 Pulse Oximetry 99 04/05/20 21:56 MDM - COVID MDM Narrative Medical decision making narrative: Patient presents with upper respiratory infection likely viral in origin and could be Covid. X-ray shows no signs of pneumonia. She has no signs of acute coronary syndrome or pulmonary embolism. We will do a Covid test and she is stable for discharge. She is to follow-up with PCP in 3 to 5 days and self quarantine. She is to return if worsening. Lab Data COVID Results: No Data to Display Imaging Data CXR: Attestation: I personally reviewed and interpreted this imaging study as follows: My impression: No acute abnormality EKG Data EKG 1: Attestation: I personally reviewed and interpreted this EKG as follows: EKG interpretation date: 04/05/20 EKG interpretation time: 22:29 Interpretation: normal sinus rhythm heart rate [address] or T wave abnormalities QRS 110 QTC 416 Discharge Plan Discharge Patient Disposition: Home Clinical Impression: Upper respiratory infection Qualifiers: URI type: unspecified URI Qualified Code(s): J06.9 - Acute upper respiratory infection, unspecified Condition: Stable Prescriptions: No Action citalopram 20 mg tablet 20 mg PO DAILY RF: 0 estradiol 1 mg tablet 1 mg PO DAILY Qty: 30 RF: 6 hydrocodone-acetaminophen 5-325 mg tablet 1 - 2 tab PO Q5H PRN (Reason: pain) Qty: 30 RF: 0 Discharge Orders: Discharge Order (Routine); Ordered 04/05/20 Ordered By: Marci Sanchez Referrals: Ayo Ovalles MD [Primary Care Provider] - Discharge Diet: Advance as tolerated Discharge Activity: Resume usual activity Patient Instructions: Viral Syndrome (ED) Coding Level of Care Code ED Oracle Programmer for [facility]
[2020-04-05] MEDS: dexamethasone 10 mg/mL INJ IM (22:49)
[2020-04-05 22:50] VITALS: BP 123/76; PULSE 76; RESP 16; O2SAT 98
[2020-04-07 19:17] LABS: Quest SARS-CoV-2 RNA NOT DETECTED (NOT DETECTED)
--- NOTE | 2020-04-08 09:33 | PC.NURSE ---
Patient notified at this time of COVID results.
== END 2020-04-05 22:51 | disposition home or self-care (01) ==
PROVIDERS: Emergency Provider Emergency Medicine; PCP Family Medicine
DX: J06.9 Acute upper respiratory infection, unspecified (principal); F17.210 Nicotine dependence, cigarettes, uncomplicated
CPT/HCPCS: 12345; 71045; 87635; 93005; 96372; 99282; 99283; J1100

== ENCOUNTER → 2022-08-07 17:22 | Outpatient (BNVA) | payer OTHER, SELFPAY | PROVIDERS: PCP Family Medicine; Visit Provider Family Medicine | DX: S69.91XA Unspecified injury of right wrist, hand and finger(s), initial encounter (principal); X58.XXXA Exposure to other specified factors, initial encounter | CPT/HCPCS: 73130 ==

== ENCOUNTER 2022-12-01 15:38 | Emergency (ER) | payer OTHER, SELFPAY ==
[2022-12-01 15:46] VITALS: BP 121/90; PULSE 76; RESP 12; TEMP 36.7; O2SAT 98; BMI 28.3
--- NOTE | 2022-12-01 16:20 | CTR_ITS ---
PROCEDURE INFORMATION: Exam: CT Head Without Contrast Exam date and time: 12/01/2022 4:28 PM Age: 32 years old Clinical indication: Pain; Headache not specified; Additional info: New onset headache x 10 days TECHNIQUE: Imaging protocol: Computed tomography of the head without contrast. Axial, coronal and sagittal reformatted images were created and reviewed. Radiation optimization: All CT scans at this facility use at least one of these dose optimization techniques: automated exposure control; mA and/or kV adjustment per patient size (includes targeted exams where dose is matched to clinical indication); or iterative reconstruction. REPORTING DATA: Count of CT and Cardiac NM exams in prior 12 months: This patient has received 0 known CTs and 0 known cardiac nuclear medicine studies in the 12 months prior to the current study. COMPARISON: No relevant prior studies available. RADIATION DOSE METRICS: Total DLP (mGy-cm): 1028.58 FINDINGS: Brain: No CT evidence of acute intracranial hemorrhage or acute territorial infarction. No significant mass effect or midline shift. Basal cisterns patent. Cerebral ventricles: Normal in size and configuration. Paranasal sinuses: Mild polypoid left maxillary and left sphenoid sinus mucosal thickening. No air-fluid levels. Mastoid air cells: Grossly unremarkable. Bones/joints: No acute osseous abnormality. Soft tissues: Grossly unremarkable. CT/CT head wo con* [id number] IMPRESSION: 1[address] No CT evidence of acute intracranial pathology. 2. Additional findings, as above.
--- NOTE | 2022-12-01 16:23 | W.ED.HA ---
HPI - Headache General: Chief Complaint: Headache Stated Complaint: severe headache Time Seen by Provider: 12/01/22 16:09 History of Present Illness: Patient presents to the ER with complaints of a headache for the last 10 days. Patient was seen at the urgent care and they thought it was a sinus infection she has been using Zyrtec-D with no relief. Patient states it hurts underneath her eyes. Patient denies any other symptoms at this time. Patient does not routinely get headaches. MD elicited complaint: headache Onset (ago): day(s) (10 days ago) Onset description: gradually Location: retro-orbital and generalized Severity: moderate Quality & Timing: aching, throbbing and pressure Relieving factors: nothing Review of Systems General: Reports: 10 or more systems reviewed and unremarkable except in HPI and below PFSH ED PFSH: Medical History Anxiety and depression History of endometriosis Pain and dyspareunia---suppressive hormones did not work and she ended up having TLH BSO in March 2020 and is currently on hormone replacement therapy No pertinent past medical history Denies diabetes, asthma, hypertension, seizures, DVT/PE PCP: Dr. Ovalles Surgical History History of delivery X 2 2010-Performed by Dr Mcgovern at [facility] in [place], [place] 2017-performed by Dr. Ovalles at [facility] in [place] History of hysterectomy Total laparoscopic hysterectomy, bilateral salpingo-oophorectomy , cystoscopy for chronic pelvic pain and endometriosis on 03/23/[address] Plaza at [facility]. Pathology showed 174 g uterus with cervix with nabothian cysts and focal endometriosis on the peritoneum. The endometrium showed proliferative endometrium with adenomyosis in the myometrium. Bilateral tubes were benign with the left ovary showing an endometrioma and the right ovary being benign. History of laparoscopy Diagnostic laparoscopy with peritoneal biopsies done on 07/13/[address] Plaza at [facility] for chronic pelvic pain. During surgery signs of endometriosis-stage I were noted. Biopsies were done on the peritoneum which showed connective tissue without histopathological changes. Ovarian biopsy done showed hemorrhagic cysts consistent with endometriosis. No postoperative complications noted. History of tonsillectomy and adenoidectomy 09/09/05-tonsillectomy and adeniodectomy. dx: obstructive sleep apnea symptoms secondary to adenotonsillar hypertrophy. Performed at Dr Mayorga at [facility] in [place], [place] History of tubal ligation 2017, at time of cesarian section S/P appendectomy 02/2020---laparoscopic performed by Dr. Dong Family History Mother Hypertension Stroke Family/Other Ovarian cancer maternal aunt, paternal aunt. 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 Additional social history: Well balanced diet Physical Exam Const: COMMON NORMALS: no acute distress, average body habitus, patient oriented x3, no limitations, healthy appearing, alert and well nourished HENMT: COMMON NORMALS: normocephalic, atraumatic, hearing grossly normal bilaterally, external ears normal, Normal external nose present and moist oral mucous membranes HEAD & SCALP: normocephalic and atraumatic NOSE: Normal external nose present EXTERNAL EAR: Yes external ears normal Eye: COMMON NORMALS: Equal, round and reactive pupils present, EOMs intact bilaterally, conjunctivae normal and no scleral icterus CONJUNCTIVA: Yes conjunctivae normal PUPIL: Yes Equal, round and reactive pupils present Neck/C-Spine: COMMON NORMALS: full ROM, no lymphadenopathy, supple, no meningeal signs, no JVD and Thyroid normal THYROID: Thyroid normal Chest: COMMONS NORMALS: normal inspection of the chest and normal palpation of entire chest wall Resp: COMMON NORMALS: normal respiratory effort, No retractions, No use of accessory muscles and clear to auscultation bilaterally AUSCULTATION: clear to auscultation bilaterally Cardio: COMMON NORMALS: no JVD, regular rate, regular rhythm, S1 normal heart sound present, S2 normal heart sound present, No gallops present (Cardio), No clicks present (Cardio), No murmurs present (Cardio) and No rub (Cardio) RATE: regular rate RHYTHM: regular rhythm HEART SOUNDS: S1 normal heart sound present and S2 normal heart sound present GI: COMMON NORMALS: Normal to inspection, nondistended, normoactive bowel sounds present, Soft to palpation, non-tender, No hepatosplenomegaly present and no masses PALPATION: Yes Soft to palpation and Yes No hepatosplenomegaly present Neuro: COMMON NORMALS: patient oriented x3 SENSORIUM/ORIENTATION: Yes alert MENINGEAL SIGNS: Yes no meningeal signs Course Vital Signs: Vital signs: Vital Signs Temperature 98.0 F 12/01/22 15:46 Pulse Rate 88 12/01/22 17:27 Respiratory Rate 12 12/01/22 15:46 Blood Pressure 128/74 12/01/22 17:27 Pulse Oximetry 98 12/01/22 15:46 Oxygen Delivery Me thod Room Air 12/01/22 15:46 MDM - Headache Medical Decision Making Patient presents to the ER with headache which is unusual for her.'s head CT was done which showed no acute findings as well as lab work which was all benign. Patient was given IV Reglan Toradol Benadryl and a liter normal saline which resolved her headache. Patient be discharged home to follow-up with her PCP. Differential Diagnosis Likely migraine and headache; Unlikely tension headache, subarachnoid hemorrhage, meningitis, sinusitis or postconcussion syndrome Medical Records I reviewed the patient's medical records. Lab Data I reviewed the patient's lab results. 12/01/22 16:41 12/01/22 16:[address] 12/01/22 16:20 IMPRESSION: 1. No CT evidence of acute intracranial pathology. 2. Additional findings, as above. Laboratory Results WBC 7.8 10^3/uL (4.0-10.0) 12/01/22 16:41 RBC 4.93 10^6/uL (4.1-5.3) 12/01/22 16:41 Hgb 15.0 g/dL (11.5-15.3) 12/01/22 16:41 Hct 45.6 % (37.0-47.0) 12/01/22 16:41 MCV 92.5 fl (81-99) 12/01/22 16:41 MCH 30.4 pg (28.0-34.0) 12/01/22 16:41 MCHC 32.9 g/dL (30.0-36.0) 12/01/22 16:41 RDW 12.0 % (12.1-15.1) L 12/01/22 16:41 Plt Count 203 10^3/cmm (130-400) 12/01/22 16:41 MPV 10.7 fL (7.4-10.4) H 12/01/22 16:41 Neut % (Auto) 54.8 % 12/01/22 16:41 Lymph % (Auto) 31.8 % 12/01/22 16:41 Grundy % (Auto) 5.8 % 12/01/22 16:41 Eos % (Auto) 6.1 % 12/01/22 16:41 Baso % (Auto) 1.2 % 12/01/22 16:41 Neut # (Auto) 4.26 10^3/uL (1.8-7.7) 12/01/22 16:41 Lymph # (Auto) 2.5 10^3/uL (0.8-4.8) 12/01/22 16:41 Grundy # (Auto) 0.5 10^3/uL (0.2-0.9) 12/01/22 16:41 Eos # (Auto) 0.5 10^3/uL (0.0-0.8) 12/01/22 16:41 Baso # (Auto) 0.1 10^3/uL (0.0-0.1) 12/01/22 16:41 Nucleated RBC % (auto) 0 % 12/01/22 16:41 Nucleated RBCs # 0.0 /100WBC 12/01/22 16:41 Sodium 138 mmol/L (136-145) 12/01/22 16:41 Potassium 4.7 mmol/L (3.5-5.1) 12/01/22 16:41 Chloride 105 mmol/L (98-107) 12/01/22 16:41 Carbon Dioxide 25 mmol/L (22-29) 12/01/22 16:41 Anion Gap 12.7 (5-19) 12/01/22 16:41 BUN 13 mg/dL (6-20) 12/01/22 16:41 Creatinine 0.8 mg/dL (0.5-0.9) 12/01/22 16:41 GFR Calculation 82.6 mL/min (90-130) L 12/01/22 16:41 Glucose 79 mg/dL (65-115) 12/01/22 16:41 Calculated Osmolality 285 mOsm/kg (285-295) 12/01/22 16:41 Calcium 9.4 mg/dL (8.5-10.5) 12/01/22 16:41 Total Bilirubin 0.3 mg/dL (0.15-1.2) 12/01/22 16:41 AST 16 U/L (0-32) 12/01/22 16:41 ALT 15 U/L (0-33) 12/01/22 16:41 Alkaline Phosphatase 74 U/L (35-105) 12/01/22 16:41 Total Protein 6.7 g/dL (6.6-8.7) 12/01/22 16:41 Albumin 4.2 g/dL (3.5-5.2) 12/01/22 16:41 Globulin 2.5 g/dL (1.3-4.6) 12/01/22 16:41 Discharge Plan Discharge Patient Disposition: Home Clinical Impression: Headache Qualifiers: Headache type: unspecified Headache chronicity pattern: acute headache Intractability: not intractable Qualified Code(s): R51.9 - Headache, unspecified Condition: Stable Prescriptions: No Action alprazolam 0.25 mg tablet 0.25 mg PO BID PRN (Reason: anxiety) Qty: 45 0RF estradiol 1 mg tablet 1 mg PO DAILY Qty: 90 5RF escitalopram oxalate [Lexapro] 10 mg tablet 10 mg PO DAILY Qty: 90 2RF Rx Instructions: take half tab daily for first 7 days, then start a whole tab daily. Discharge Orders: Discharge ED (Routine); Ordered 12/01/22 Ordered By: Edmundo Gómez Referrals: Ayo Ovalles MD [Primary Care Provider] - Patient Instructions: Opioid Safety, Pain Management Coding Level of Care Code ED Assemblies And Installations Inspector for Carlota Merino
[2022-12-01 16:46] LABS: Basophils # 0.1 10^3/uL (0.0-0.1); Basophils % 1.2 %; Eosinophils # 0.5 10^3/uL (0.0-0.8); Eosinophils % 6.1 %; Hematocrit 45.6 % (37.0-47.0); Lymphocytes # 2.5 10^3/uL (0.8-4.8); Lymphocytes % 31.8 %; Mean Corpuscular HGB Conc 32.9 g/dL (30.0-36.0); Mean Corpuscular Hemoglobin 30.4 pg (28.0-34.0); Mean Corpuscular Volume 92.5 fl (81-99); Mean Platelet Volume 10.7 fL (7.4-10.4); Monocytes # 0.5 10^3/uL (0.2-0.9); Monocytes % 5.8 %; Neutrophils # 4.26 10^3/uL (1.8-7.7); Neutrophils % 54.8 %; Nucleated Red Blood Cells % 0 %; Platelet Count 203 10^3/cmm (130-400); Red Blood Count 4.93 10^6/uL (4.1-5.3); White Blood Count 7.8 10^3/uL (4.0-10.0)
[2022-12-01] MEDS: diphenhydrAMINE 50 mg/mL SDV 1mL 25 MG IVP (16:50)
[2022-12-01] MEDS: metoclopramide 5 mg/mL SDV 2 mL 10 MG IVP (16:50)
[2022-12-01] MEDS: ketorolac 30 mg/mL INJ IVP (16:50)
[2022-12-01] MEDS: sodium chloride 0.9% 1,000 ML 999 ML IV (16:51)
[2022-12-01 17:06] LABS: Alanine Aminotransferase 15 U/L (0-33); Albumin Level 4.2 g/dL (3.5-5.2); Alkaline Phosphatase 74 U/L (35-105); Anion Gap 12.7 (5-19); Aspartate Amino Transferase 16 U/L (0-32); Blood Urea Nitrogen 13 mg/dL (6-20); Calcium 9.4 mg/dL (8.5-10.5); Carbon Dioxide 25 mmol/L (22-29); Chloride 105 mmol/L (98-107); Globulin 2.5 g/dL (1.3-4.6); Glomerular Filtration Rate 82.6 mL/min (90-130); Glucose 79 mg/dL (65-115); Osmolality Calculated 285 mOsm/kg (285-295); Potassium 4.7 mmol/L (3.5-5.1); Sodium 138 mmol/L (136-145); Total Bilirubin 0.3 mg/dL (0.15-1.2); Total Protein 6.7 g/dL (6.6-8.7)
[2022-12-01 17:27] VITALS: BP 128/74; PULSE 88
[2022-12-01 18:40] VITALS: BP 127/71; PULSE 86; RESP 18; O2SAT 99
== END 2022-12-01 18:41 | disposition home or self-care (01) ==
PROVIDERS: Emergency Provider Emergency Medicine; PCP Family Medicine
DX: R51.9 Headache, unspecified (principal)
CPT/HCPCS: 36415; 70450; 80053; 85025; 96374; 96375; 99285; J1200; J1885; J2765; J7030

== ENCOUNTER 2023-02-20 09:33 | Outpatient (CLI) | payer OTHER, SELFPAY ==
--- NOTE | 2023-02-20 10:29 | MM_ITS ---
WS: [id number] BILATERAL 3D TOMOSYNTHESIS DIGITAL DIAGNOSTIC MAMMOGRAPHY WITH CAD CLINICAL INFORMATION: RT BREAST LUMP HISTORY: RIGHT breast swelling COMPARISON: Baseline TECHNIQUE: Bilateral CC, MLO, and ML views. FINDINGS: Scattered fibroglandular densities bilaterally. A few incidental punctate calcifications. No suspicio us abnormalities in the upper inner RIGHT breast. Ultrasound is pending. LEFT breast is unremarkable. ULTRASOUND BREAST RIGHT TECHNIQUE: Ultrasound right breast focused area of concern. CLINICAL INFORMATION: RT BREAST LUMP FINDINGS: Ultrasound RIGHT breast area of concern upper inner quadrant RIGHT breast. Normal underlying parenchy mal tissue. No cystic or solid lesions. No suspicious findings. IMPRESSION: MM/[place] [id number] BI-RADS: 2-Benign FOLLOW UP: Age 39 Recommend annual screening mammography age 40.
== END 2023-02-20 09:34 | disposition home or self-care (01) ==
PROVIDERS: PCP Family Medicine; Visit Provider Nurse Practitioner Women's Health
DX: N63.12 Unspecified lump in the right breast, upper inner quadrant (principal)
CPT/HCPCS: 76642; 77062; G0279

== ENCOUNTER 2023-09-28 12:28 | Emergency (ER) | payer OTHER, SELFPAY ==
[2023-09-28 12:36] VITALS: BP 118/79; PULSE 80; RESP 18; TEMP 36.7; O2SAT 100
--- NOTE | 2023-09-28 12:48 | ED_ITS ---
HPI - Abdominal Pain 2 General: Chief Complaint: Abdominal Pain Stated Complaint: abd pain, lower back pain Time Seen by Provider: 09/28/23 12:43 Source: patient Mode of arrival: ambulatory Limitations: no limitations History of Present Illness: 32-year-old female states she been havin g lower abdominal pain since Friday. She has had history of some chronic pelvic pain with endometriosis. States that pain has been cramping left lower quadrant she rates the pain a 7 out of 10 currently denies any vomiting or diarrhea denies any worsening improving factors. PFSH ED 2 PFSH: Medical History (Updated 09/28/23 @ 14:40 by Marci Sanchez MD) No pertinent past medical history Denies diabetes, asthma, hypertension, seizures, DVT/PE PCP: Dr. Ovalles History of endometriosis Pain and dyspareunia---suppressive hormones did not work and she ended up having TLH BSO in March 2020 and is currently on hormone replacement therapy Anxiety and depression Surgical History S/P appendectomy 02/2020---laparoscopic performed by Dr. Dong History of tonsillectomy and adenoidectomy 09/09/05-tonsillectomy and adeniodectomy. dx: obstructive sleep apnea symptoms secondary to adenotonsillar hypertrophy. Performed at Dr Mayorga at [facility] in [place], [place] History of laparoscopy Diagnostic laparoscopy with peritoneal biopsies done on 07/13/[address] Plaza at [facility] for chronic pelvic pain. During surgery signs of endometriosis-stage I were noted. Biopsies were done on the peritoneum which showed connective tissue without histopathological changes. Ovarian biopsy done showed hemorrhagic cysts consistent with endometriosis. No postoperative complications noted. History of tubal ligation 2017, at time of cesarian section History of delivery X 2 2010-Performed by Dr Mcgovern at [facility] in [place], [place] 2017-performed by Dr. Ovalles at [facility] in [place] History of hysterectomy Total laparoscopic hysterectomy, bilateral salpingo-oophorectomy , cystoscopy for chronic pelvic pain and endometriosis on 03/23/[address] Plaza at [facility]. Pathology showed 174 g uterus with cervix with nabothian cysts and focal endometriosis on the peritoneum. The endometrium showed proliferative endometrium with adenomyosis in the myometrium. Bilateral tubes were benign with the left ovary showing an endometrioma and the right ovary being benign. Family History Mother Hypertension Stroke Family/Other Ovarian cancer maternal aunt, paternal aunt. 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 [employer] Physical Exam 2 Const: COMMON NORMALS: no acute distress, patient oriented x3 and healthy appearing HENMT: COMMON NORMALS: normocephalic and atraumatic HEAD & SCALP: n ormocephalic and atraumatic Neck/C-Spine: COMMON NORMALS: full ROM and supple Chest: COMMONS NORMALS: normal inspection of the chest Resp: COMMON NORMALS: normal respiratory effort Cardio: COMMON NORMALS: regular rate RATE: regular rate GI: COMMON NORMALS: Normal to inspection, nondistended, normoactive bowel sounds present, Soft to palpation, non-tender and no masses PALPATION: Yes Soft to palpation Extremity: COMMON NORMALS: normal to inspection and full ROM Neuro: COMMON NORMALS: patient oriented x3, moves all extremities and no focal motor deficits Psych: COMMON NORMALS: mental status grossly normal, Normal thought process present and cooperative THOUGHT PROCESS: Normal thought process present Skin: COMMON NORMALS: no rashes or lesions noted and no wounds GENERAL SKIN EXAM: no rashes or lesions noted Course 2 Vital Signs: Vital signs: Vital Signs Temperature 98.1 F 09/28/23 12:36 Pulse Rate 61 09/28/23 13:23 Respiratory Rate 16 09/28/23 13:04 Blood Pressure 124/90 09/28/23 13:23 Pulse Oximetry 96 09/28/23 13:23 Oxygen Delivery Me thod Room Air 09/28/23 13:23 MDM - Abdominal Pain Medical Decision Making Patient presents with abdominal pain her pain is much improved here CT abdomen blood work here is all normal she is follow-up with PCP and return if worsening she understands agrees to plan. Medical Records I reviewed the patient's medical records. Lab Data I reviewed the patient's lab results. 09/28/23 12:45 09/28/23 12:45 Labs/Radiology: Radiology Impressions Abdomen/Pelvis CT 09/28/23 13:33 IMPRESSION: 1. No acute findings. 2. No evidence of acute diverticulitis. Laboratory Results WBC 7.75 10^3/uL (3.29-11.43) 09/28/23 12:45 RBC 4.62 10^6/uL (3.85-5.65) 09/28/23 12:45 Hgb 14.00 g/dL (11.27-16.99) 09/28/23 12:45 Hct 40.9 % (36-47) 09/28/23 12:45 MCV 88.5 fl (85-98) 09/28/23 12:45 MCH 30.3 pg (27-33) 09/28/23 12:45 MCHC 34.2 g/dL (30-55) 09/28/23 12:45 RDW 12.2 % (12.1-15.1) 09/28/23 12:45 Plt Count 222 10^3/cmm (157-399) 09/28/23 12:45 MPV 10.7 fL (7.4-10.4) H 09/28/23 12:45 Neut % (Auto) 61.5 % 09/28/23 12:45 Lymph % (Auto) 26.2 % 09/28/23 12:45 Baxter % (Auto) 8.0 % 09/28/23 12:45 Eos % (Auto) 2.7 % 09/28/23 12:45 Baso % (Auto) 1.5 % 09/28/23 12:45 Neut # (Auto) 4.76 10^3/uL (1.8-7.7) 09/28/23 12:45 Lymph # (Auto) 2.0 10^3/uL (0.8-4.8) 09/28/23 12:45 Baxter # (Auto) 0.6 10^3/uL (0.2-0.9) 09/28/23 12:45 Eos # (Auto) 0.2 10^3/uL (0.0-0.8) 09/28/23 12:45 Baso # (Auto) 0.1 10^3/uL (0.0-0.1) 09/28/23 12:45 Nucleated RBC % (auto) 0 % 09/28/23 12:45 Nucleated RBCs # 0.0 /100WBC 09/28/23 12:45 Sodium 140 mmol/L (136-145) 09/28/23 12:45 Potassium 3.9 mmol/L (3.5-5.1) 09/28/23 12:45 Chloride 108 mmol/L (98-107) H 09/28/23 12:45 Carbon Dioxide 22 mmol/L (22-29) 09/28/23 12:45 Anion Gap 13.9 (5-19) 09/28/23 12:45 BUN 10 mg/dL (6-20) 09/28/23 12:45 Creatinine 0.7 mg/dL (0.5-0.9) 09/28/23 12:45 GFR Calculation 96.4 mL/min (90-130) 09/28/23 12:45 Glucose 92 mg/dL (65-115) 09/28/23 12:45 Calculated Osmolality 289 mOsm/kg (285-295) 09/28/23 12:45 Calcium 9.0 mg/dL (8.5-10.5) 09/28/23 12:45 Total Bilirubin 0.3 mg/dL (0.15-1.2) 09/28/23 12:45 AST 16 U/L (0-32) 09/28/23 12:45 ALT 16 U/L (0-33) 09/28/23 12:45 Alkaline Phosphatase 62 U/L (35-105) 09/28/23 12:45 Total Protein 7.0 g/dL (6.6-8.7) 09/28/23 12:45 Albumin 4.2 g/dL (3.5-5.2) 09/28/23 12:45 Globulin 2.8 g/dL (1.3-4.6) 09/28/23 12:45 HCG, Qual Negative (Negative) 09/28/23 12:45 Urine Color Straw (Yellow) 09/28/23 12:52 Urine Appearance Clear (CLEAR) 09/28/23 12:52 Urine pH 6 (5-7) 09/28/23 12:52 Ur Specific Mars 1.020 (1.005-1.030) 09/28/23 12:52 Urine Protein Neg (Negative) 09/28/23 12:52 Urine Glucose (UA) Norm (Normal) 09/28/23 12:52 Urine Ketones Negative (Negative) 09/28/23 12:52 Urine Blood 2+ (Negative) H 09/28/23 12:52 Urine Nitrate Negative (Negative) 09/28/23 12:52 Urine Bilirubin Neg (Negative) 09/28/23 12:52 Urine Urobilinogen Norm mg/dL (Negative) 09/28/23 12:52 Ur Leukocyte Esterase Trace (Negative) H 09/28/23 12:52 Urine RBC 0-4 /hpf (0-2) H 09/28/23 12:52 Urine WBC 5-10 /hpf (0-5) H 09/28/23 12:52 Ur Squamous Epith Cells 5-10 /hpf (0-5) H 09/28/23 12:52 Amorphous Sediment Not Reportable 09/28/23 12:52 Urine Bacteria Trace /hpf (NONE) 09/28/23 12:52 Salicylates 0.9 mg/dL (3-10) L 09/28/23 12:45 Acetaminophen < 5.0 ug/mL (10-30) L 09/28/23 12:45 Ethyl Alcohol < 10 mg/dL (0-10) 09/28/23 12:45 No radiology studies performed this visit Discharge Plan Discharge Patient Disposition: Home Clinical Impression: Abdominal pain Condition: Stable Prescriptions: New Reglan 10 mg tablet 10 mg PO Q6H PRN (Reason: nausea and vomiting) Qty: 20 0RF No Action alprazolam 0.25 mg tablet 0.25 mg PO BID PRN (Reason: anxiety) Qty: 45 0RF amoxicillin-pot clavulanate 875-125 mg tablet 1 tab PO BID estradiol 1 mg tablet 1 mg PO QPM progesterone micronized 200 mg capsule 200 mg PO QPM Lexapro 10 mg tablet 10 mg PO QPM Rx Instructions: take half tab daily for first 7 days, then start a whole tab daily. Discharge Orders: Discharge ED (Routine); Ordered 09/28/23 Ordered By: Marci Sanchez Referrals: Ayo Ovalles MD [Primary Care Provider] - 1-3 days Discharge Diet: Advance as tolerated Discharge Activity: Resume usual activity Patient Instructions: Abdominal Pain (ED) Coding Level of Care Code ED Meter Repair Shop Supervisor for Carlota Merino
[2023-09-28 12:51] LABS: Basophils # 0.1 10^3/uL (0.0-0.1); Basophils % 1.5 %; Eosinophils # 0.2 10^3/uL (0.0-0.8); Eosinophils % 2.7 %; Hematocrit 40.9 % (36-47); Lymphocytes % 26.2 %; Mean Corpuscular HGB Conc 34.2 g/dL (30-55); Mean Corpuscular Hemoglobin 30.3 pg (27-33); Mean Corpuscular Volume 88.5 fl (85-98); Mean Platelet Volume 10.7 fL (7.4-10.4); Monocytes # 0.6 10^3/uL (0.2-0.9); Neutrophils # 4.76 10^3/uL (1.8-7.7); Neutrophils % 61.5 %; Nucleated Red Blood Cells % 0 %; Platelet Count 222 10^3/cmm (157-399); Red Blood Count 4.62 10^6/uL (3.85-5.65); Red Cell Distribution Width 12.2 % (12.1-15.1); White Blood Count 7.75 10^3/uL (3.29-11.43)
[2023-09-28] MEDS: sodium chloride 0.9% 1,000 ML 999 ML IV (13:02)
[2023-09-28] MEDS: ondansetron 2 mg/ML SDV 2 mL 4 MG IVP (13:02)
[2023-09-28 13:04] VITALS: RESP 16; O2SAT 96
[2023-09-28] MEDS: HYDROmorphone 1 mg/mL INJ 1 mL IVP (13:04)
[2023-09-28 13:07] LABS: Acetaminophen < 5.0 ug/mL (10-30); Alanine Aminotransferase 16 U/L (0-33); Albumin Level 4.2 g/dL (3.5-5.2); Alcohol Level < 10 mg/dL (0-10); Alkaline Phosphatase 62 U/L (35-105); Anion Gap 13.9 (5-19); Aspartate Amino Transferase 16 U/L (0-32); Blood Urea Nitrogen 10 mg/dL (6-20); Carbon Dioxide 22 mmol/L (22-29); Chloride 108 mmol/L (98-107); Globulin 2.8 g/dL (1.3-4.6); Glomerular Filtration Rate 96.4 mL/min (90-130); Glucose 92 mg/dL (65-115); HCG, Serum Qual Negative (Negative); Osmolality Calculated 289 mOsm/kg (285-295); Potassium 3.9 mmol/L (3.5-5.1); Salicylate 0.9 mg/dL (3-10); Sodium 140 mmol/L (136-145); Total Bilirubin 0.3 mg/dL (0.15-1.2)
[2023-09-28 13:09] LABS: Add Urine Microscopic? YES; Bilirubin Urine Neg (Negative); Blood Urine 2+ (Negative); Glucose Urine UA Norm (Normal); Ketones Urine Negative (Negative); Leukocyte Esterase Urine Trace (Negative); Nitrate Urine Negative (Negative); Protein Urine Neg (Negative); Urine Appearance Clear (CLEAR); Urine Color Straw (Yellow); Urobilinogen Urine Norm (Negative); pH Urine 6 (5-7)
[2023-09-28 13:10] LABS: Add Urine Culture? No; Bacteria Urine TRACE /hpf; RBC Urine 0-4 /hpf (0-2)
[2023-09-28 13:23] VITALS: BP 124/90; PULSE 61; O2SAT 96
--- NOTE | 2023-09-28 13:33 | CTR_ITS ---
PROCEDURE INFORMATION: Exam: CT Abdomen And Pelvis With Contrast Exam date and time: 09/28/2023 1:46 PM Age: 32 years old Clinical indication: Abdominal pain; Localized; Left; Prior surgery; Surgery date: 6+ months; Surgery type: Appy, hysto, tubal; Additional info: Abd pain TECHNIQUE: Imaging protocol: Computed tomography of the abdomen and pelvis with contrast. Radiation optimization: All CT scans at this facility use at least one of these dose optimization techniques: automated exposure control; mA and/or kV adjustment per patient size (includes targeted exams where dose is matched to clinical indication); or iterative reconstruction. Contrast material: OMNI 350; Contrast volume: 100 ml; Contrast route: INTRAVENOUS (IV); COMPARISON: CT abdomen pelvis w con* [id number] 01/19/2020 10:20 PM RADIATION DOSE METRICS: Total DLP (mGy-cm): 551.51 FINDINGS: Liver: Normal. No mass. Gallbladder and bile ducts: Normal. No calcified stones. No ductal dilation. Pancreas: Normal. No ductal dilation. Spleen: Normal. No splenomegaly. Adrenal glands: Normal. No mass. Kidneys and ureters: No suspicious renal mass. No hydronephrosis. Bilateral nonobstructing punctate calcifications. Ureters are normal. Stomach and bowel: No bowel obstruction. Stomach is normal in appearance. Mild segmental wall thickening of the transverse colon, likely secondary to underdistention Appendix: There has been an appendectomy. Intraperitoneal space: Unremarkable. No free air. No significant fluid collection. Vasculature: Unremarkable. No abdominal aortic aneurysm. Lymph nodes: Unremarkable. No enlarged lymph nodes. Urinary bladder: Unremarkable as visualized. Reproductive: There has been a hysterectomy. Bones/joints: Unremarkable. No acute fracture. Soft tissues: Unremarkable. CT/CT abdomen pelvis w con* [id number] IMPRESSION: 1. No acute findings. 2. No evidence of acute diverticulitis.
[2023-09-28] MEDS: metoclopramide 5 mg/mL SDV 2 mL 10 MG IVP (13:36)
[2023-09-28] MEDS: diphenhydrAMINE 50 mg/mL SDV 1mL IVP (13:38)
[2023-09-28] MEDS: iohexol 350 mg/mL 500 mL Btl (per mL) IV (13:45)
== END 2023-09-28 14:57 | disposition home or self-care (01) ==
PROVIDERS: Emergency Provider Emergency Medicine; PCP Family Medicine
DX: R10.32 Left lower quadrant pain (principal); Z72.0 Tobacco use
CPT/HCPCS: 36415; 74177; 80053; 80307; 81001; 84703; 85025; 96374; 96375; 99285; J1170; J1200; J2405; J2765; J7030; Q9967

== ENCOUNTER → 2024-03-25 11:15 | Outpatient (BNVA) | payer OTHER, SELFPAY | PROVIDERS: PCP Family Medicine; Visit Provider Nurse Practitioner | DX: J02.9 Acute pharyngitis, unspecified (principal) | CPT/HCPCS: 87880 ==

== ENCOUNTER 2024-04-09 07:59 | Outpatient (CLI) | payer OTHER, SELFPAY ==
--- NOTE | 2024-04-09 08:06 | CTR_ITS ---
PROCEDURE INFORMATION: Exam: CT Temporal Bones Without Contrast. 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 PT unable to take earring out TECHNIQUE: Imaging protocol: Computed tomography of the temporal bones without contrast. Radiation optimization: All CT scans at this facility use at least one of these dose optimization techniques: automated exposure control; mA and/or kV adjustment per patient size (includes targeted exams where dose is matched to clinical indication); or iterative reconstruction. COMPARISON: CT head wo con* [id number] 12/01/2022 4:28 PM RADIATION DOSE METRICS: Total DLP (mGy-cm): 340.94 FINDINGS: Right inner ear: Normal. Right ossicles and middle ear: Normal. The middle ear ossicles are intact. Right external auditory canal: Normal. Right facial nerve canal: Normal. Right jugular foramen: No jugular dehiscence. Right carotid canal: No aberrant carotid canal. Right mastoid air cells: Normal. No mastoid effusions. Left inner ear: Normal. Left ossicles and middle ear: Normal. The middle ear ossicles are intact. Left external auditory canal: Normal. Left facial nerve canal: Normal. Left jugular foramen: No jugular dehiscence. Left carotid canal: No aberrant carotid canal. Left mastoid air cells: Normal. No mastoid effusions. Soft tissues: Unremarkable. CT/CT temporal bone wo con* [id number] IMPRESSION: No acute findings.
== END 2024-04-09 08:00 | disposition home or self-care (01) ==
PROVIDERS: PCP Family Medicine; Visit Provider Otolaryngology
DX: H90.8 Mixed conductive and sensorineural hearing loss, unspecified (principal); H69.83 Other specified disorders of Eustachian tube, bilateral; H73.891 Other specified disorders of tympanic membrane, right ear
CPT/HCPCS: 70480

== ENCOUNTER → 2024-08-16 12:50 | Outpatient (BNVA) | payer OTHER, SELFPAY | PROVIDERS: PCP Family Medicine; Referring Provider Family Medicine; Visit Provider Specialist | DX: H47.10 Unspecified papilledema (principal); R51.9 Headache, unspecified | CPT/HCPCS: 36415; 80053; 82607; 84439; 84443; 85025; 85651; 86160; 86162; 86235; 86255; 86376 ==

== ENCOUNTER 2024-09-07 08:30 | Outpatient (CLI) | payer OTHER, SELFPAY ==
--- NOTE | 2024-09-07 09:15 | MR_ITS ---
WS: [id number] MRI HEAD WITHOUT AND WITH GADOLINIUM ENHANCEMENT WITH ORBIT PROTOCOL TECHNIQUE: Sagittal T1, axial T2, axial FLAIR, and axial diffusion-weighted imaging was obtained. Susceptibility weighted imaging. Pre and post T1 gadolinium multiplanar imaging. High resolution orbital imaging with attention to the orbits. Post gadolinium orbit imaging with fat saturation technique. CLINICAL INFORMATION: H47.10 - Unspecified papilledema COMPARISON: None. FINDINGS: No evidence of restricted diffusion to suggest acute ischemia. Ventricular system and basal cisterns are patent. Small retention cyst LEFT maxillary sinus. Paranasal sinuses are well aerated. Mastoid air cells are well aerated. Normal posterior nasopharynx. No suspicious intracranial signal normalities. No hemosiderin on susceptibility- weighted images. No abnormal gadolinium enhancement. Normal optic chiasm and pituitary infundibulum. No optic nerve edema. No evidence of optic neuritis. No other suspicious findings. MR/MR head orbits wo/w* [id number] IMPRESSION: 1. Normal optic nerves. No evidence of optic neuritis. 2. No evidence of restricted diffusion to suggest acute ischemia. 3. No suspicious intracranial signal normalities. No hydrocephalus. 4. No acute intracranial findings.
[2024-09-07] MEDS: gadobenate dimeglumine 20 mL vial 15 ML IV (09:46)
--- NOTE | 2024-09-07 10:00 | MR_ITS ---
WS: [id number] MR venography without gadolinium enhancement INDICATION: Papilledema TECHNIQUE: MR venography without gadolinium enhancement. Maximum intensity projection images. FINDINGS: Normal sagittal sinus. Normal straight sinus and internal cerebral veins. Sigmoid sinuses and transverse sinuses appear patent. Distal internal jugular veins appear patent. No evidence of dural sinus thrombosis. MR/[place] [id number] IMPRESSION: Normal MR venogram
== END 2024-09-07 08:31 | disposition home or self-care (01) ==
LOC: RAD 08:31
PROVIDERS: PCP Family Medicine; Visit Provider Specialist
DX: H47.10 Unspecified papilledema (principal); R51.9 Headache, unspecified; M27.40 Unspecified cyst of jaw
CPT/HCPCS: 70543; 70544; 70553; A9577

== ENCOUNTER → 2024-11-17 10:20 | Outpatient (BNVA) | payer OTHER, SELFPAY | PROVIDERS: PCP Family Medicine; Referring Provider Family Medicine; Visit Provider Specialist | DX: H47.10 Unspecified papilledema (principal); G47.10 Hypersomnia, unspecified; G93.2 Benign intracranial hypertension; G47.33 Obstructive sleep apnea (adult) (pediatric) | CPT/HCPCS: 80503; 82945; 84157; 86592; 87070; 87075; 87205; 87327; 89050 ==

== ENCOUNTER 2024-11-21 16:24 | Emergency (ER) | payer OTHER, SELFPAY ==
[2024-11-21 16:33] VITALS: BP 120/74; PULSE 75; RESP 16; TEMP 36.8; O2SAT 97; BMI 28.7
--- NOTE | 2024-11-21 17:28 | W.ED.HA ---
Documented by User: Yordan Triplett DO 11/22/24 06:13 HPI - Headache General: Chief Complaint: Headache Stated Complaint: headache, nausea Time Seen by Provider: 11/21/24 17:27 History of Present Illness: 34-year-old female presents emergency room with complaint of headache. Patient had a lumbar tap done 4 days ago at the neurology clinic is not having a severe headache whenever she is upright she did rates it a 10 of 10 pain when she is standing but when she lays down it reduces to 2 out of 10. No recent head injury she is not on any anticoagulants. She is given hydrocodone for pain has not been adequate. Associated symptoms: Deny chest pain, fever(s) or rash Related Data Previous Rx's ?Medication ?Instructions ?Recorded escitalopram oxalate 10 mg tablet 10 mg PO DAILY #90 tabs 12/11/23 estradiol 1 mg tablet See Rx Instructions .Route 11/11/24 .COMPLEX #90 tabs tirzepatide (weight loss) 10 10 mg (0.5 mL) SUBCUT Q7D 4 weeks 11/17/24 mg/0.5 mL subcutaneous pen #2 mL injector (Zepbound) tirzepatide (weight loss) 15 15 mg (0.5 mL) SUBCUT Q7D 12 weeks 11/17/24 mg/0.5 mL subcutaneous pen #6 mL injector (Zepbound) tirzepatide (weight loss) 2.5 2.5 mg (0.5 mL) SUBCUT Q7D 4 weeks 11/17/24 mg/0.5 mL subcutaneous pen #2 mL injector (Zepbound) tirzepatide (weight loss) 5 mg/0.5 5 mg (0.5 mL) SUBCUT Q7D 4 weeks 11/17/24 mL subcutaneous pen injector #2 mL (Zepbound) tirzepatide (weight loss) 7.5 7.5 mg (0.5 mL) SUBCUT Q7D 4 weeks 11/17/24 mg/0.5 mL subcutaneous pen #2 mL injector (Zepbound) hydrocodone 10 mg-acetaminophen 1 tab PO Q4H PRN pain 5 days #30 11/19/24 325 mg tablet tabs hydrocodone 5 mg-acetaminophen 325 1 tab PO Q8H PRN pain #7 tabs 06/01/25 mg tablet Allergies Allergy/AdvReac Type Severity Reaction Status Date / Time morphine AdvReac [id number] Verified 11/17/24 07:53 take hydrocodone Review of Systems Const: Denies: fever(s) or chills Card: Denies: chest pain Resp: Denies: dyspnea GI: Denies: abdominal pain : Denies: dysuria, urinary frequency or urinary urgency Musc: Denies: neck pain or back pain Skin/Breast: Denies: rash Neuro: Reports: headache(s) PFSH ED PFSH: Medical History No pertinent past medical history Denies diabetes, asthma, hypertension, seizures, DVT/PE PCP: Dr. Ovalles History of endometriosis Pain and dyspareunia---suppressive hormones did not work and she ended up having TLH BSO in March 2020 and is currently on hormone replacement therapy Anxiety and depression Surgical History S/P appendectomy 02/2020---laparoscopic performed by Dr. Dong History of tonsillectomy and adenoidectomy 09/09/05-tonsillectomy and adeniodectomy. dx: obstructive sleep apnea symptoms secondary to adenotonsillar hypertrophy. Performed at Dr Mayorga at [facility] in [place], [place] History of laparoscopy Diagnostic laparoscopy with peritoneal biopsies done on 07/13/[address] Plaza at [facility] for chronic pelvic pain. During surgery signs of endometriosis-stage I were noted. Biopsies were done on the peritoneum which showed connective tissue without histopathological changes. Ovarian biopsy done showed hemorrhagic cysts consistent with endometriosis. No postoperative complications noted. History of tubal ligation 2017, at time of cesarian section History of delivery X 2 2010-Performed by Dr Mcgovern at [facility] in [place], [place] 2017-performed by Dr. Ovalles at [facility] in [place] History of hysterectomy Total laparoscopic hysterectomy, bilateral salpingo-oophorectomy , cystoscopy for chronic pelvic pain and endometriosis on 03/23/[address] Plaza at [facility]. Pathology showed 174 g uterus with cervix with nabothian cysts and focal endometriosis on the peritoneum. The endometrium showed proliferative endometrium with adenomyosis in the myometrium. Bilateral tubes were benign with the left ovary showing an endometrioma and the right ovary being benign. Family History Mother Hypertension Stroke Family/Other Ovarian cancer maternal aunt, paternal aunt. 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 [employer] Physical Exam Const: GENERAL APPEARANCE: cooperative ORIENTATION/CONSCIOUSNESS: Yes awake, Yes oriented to person, Yes oriented to place and Yes oriented to time HENMT: COMMON NORMALS: normocephalic, atraumatic and hearing grossly normal bilaterally HEAD & SCALP: normocephalic and atraumatic Resp: COMMON NORMALS: normal respiratory effort, No retractions, No use of accessory muscles and clear to auscultation bilaterally AUSCULTATION: clear to auscultation bilaterally Cardio: COMMON NORMALS: regular rate, regular rhythm and No murmurs present (Cardio) RATE: regular rate RHYTHM: regular rhythm GI: COMMON NORMALS: Soft to palpation and No hepatosplenomegaly present AUSCULTATION: Yes normoactive bowel sounds PALPATION: Yes Soft to palpation, No Tenderness to palpation present (GI), No Guarding due to palpation present (GI) and Yes No hepatosplenomegaly present Extremity: COMMON NORMALS: normal to inspection, capillary refill normal, no clubbing, cyanosis or edema, no calf tenderness and no pedal edema Neuro: SENSORIUM/ORIENTATION: Yes oriented to person, Yes oriented to place and Yes oriented to time Skin: COMMON NORMALS: no rashes or lesions noted GENERAL SKIN EXAM: no rashes or lesions noted Course Vital Signs: Vital signs: Vital Signs Temperature 98.3 F 11/21/24 16:33 Pulse Rate 63 11/21/24 21:14 Respiratory Rate 16 11/21/24 16:33 Blood Pressure 115/88 11/21/24 21:14 Pulse Oximetry 99 11/21/24 21:14 Oxygen Delivery Me thod Room Air 11/21/24 19:40 MDM - Headache Medical Decision Making Post spinal tap headache. We have contacted anesthesia on-call awaiting their return call. Care signed out to Dr. Pedro at change of shift. See final notes for diagnosis and disposition. Patient was checked out to me at shift change. History remarkable for likely spinal puncture headache. CBC and BMP are not remarkable. She is given Toradol, and Percocet here with some improvement. Consulted anesthesia. They were graciously amenable to come evaluate the patient. She received a blood patch at the bedside, with resolution of her headache around an hour to an hour and a half later. At that point she wished to go home. Short course of pain medication for any residual pain. Return for any worsening or new symptoms. Medical Records I reviewed the patient's medical records. Lab Data 11/21/24 17:13 11/21/24 17:13 Laboratory Results WBC 6.93 10^3/uL (3.29-11.43) 11/21/24 17:13 RBC 4.39 10^6/uL (3.85-5.65) 11/21/24 17:13 Hgb 13.50 g/dL (11.27-16.99) 11/21/24 17:13 Hct 40.6 % (36-47) 11/21/24 17:13 MCV 92.5 fl (85-98) 11/21/24 17:13 MCH 30.8 pg (27-33) 11/21/24 17:13 MCHC 33.3 g/dL (30-55) 11/21/24 17:13 RDW 11.9 % (12.1-15.1) L 11/21/24 17:13 Plt Count 218 10^3/cmm (157-399) 11/21/24 17:13 MPV 10.5 fL (7.4-10.4) H 11/21/24 17:13 Neut % (Auto) 58.8 % 11/21/24 17:13 Lymph % (Auto) 30.4 % 11/21/24 17:13 [place] % (Auto) 6.9 % 11/21/24 17:13 Eos % (Auto) 2.7 % 11/21/24 17:13 Baso % (Auto) 0.9 % 11/21/24 17:13 Neut # (Auto) 4.07 10^3/uL (1.8-7.7) 11/21/24 17:13 Lymph # (Auto) 2.1 10^3/uL (0.8-4.8) 11/21/24 17:13 [place] # (Auto) 0.5 10^3/uL (0.2-0.9) 11/21/24 17:13 Eos # (Auto) 0.2 10^3/uL (0.0-0.8) 11/21/24 17:13 Baso # (Auto) 0.1 10^3/uL (0.0-0.1) 11/21/24 17:13 Nucleated RBC % (auto) 0 % 11/21/24 17:13 Nucleated RBCs # 0.0 /100WBC 11/21/24 17:13 Sodium 141 mmol/L (136-145) 11/21/24 17:13 Potassium 3.9 mmol/L (3.5-5.1) 11/21/24 17:13 Chloride 105 mmol/L (98-107) 11/21/24 17:13 Carbon Dioxide 26 mmol/L (22-29) 11/21/24 17:13 Anion Gap 13.9 (5-19) 11/21/24 17:13 BUN 9 mg/dL (6-20) 11/21/24 17:13 Creatinine 1.0 mg/dL (0.5-0.9) H 11/21/24 17:13 GFR Calculation 63.1 mL/min (90-130) L 11/21/24 17:13 Glucose 70 mg/dL (65-115) 11/21/24 17:13 Calculated Osmolality 289 mOsm/kg (285-295) 11/21/24 17:13 Calcium 9.4 mg/dL (8.5-10.5) 11/21/24 17:13 Total Bilirubin 0.2 mg/dL (0.15-1.2) 11/21/24 17:13 AST 14 U/L (0-32) 11/21/24 17:13 ALT 12 U/L (0-33) 11/21/24 17:13 Alkaline Phosphatase 59 U/L (35-105) 11/21/24 17:13 Total Protein 6.8 g/dL (6.6-8.7) 11/21/24 17:13 Albumin 4.1 g/dL (3.5-5.2) 11/21/24 17:13 Globulin 2.7 g/dL (1.3-4.6) 11/21/24 17:13 Discharge Plan Discharge Patient Disposition: Home Clinical Impression: Spinal puncture headache Condition: Stable Prescriptions: New hydrocodone-acetaminophen 5-325 mg tablet 1 tab PO Q8H PRN (Reason: pain) Qty: 7 0RF No Action escitalopram oxalate 10 mg tablet 10 mg PO DAILY Qty: 90 3RF Zepbound 2.5 mg/0.5 mL pen injector 2.5 mg SUBCUT Q7D 28 Days Qty: 2 0RF Zepbound 5 mg/0.5 mL pen injector 5 mg SUBCUT Q7D 28 Days Qty: 2 0RF Rx Instructions: Start after 4 weeks of 2.5mg Zepbound 7.5 mg/0.5 mL pen injector 7.5 mg SUBCUT Q7D 28 Days Qty: 2 0RF Rx Instructions: Start after 5mg Zepbound 10 mg/0.5 mL pen injector 10 mg SUBCUT Q7D 28 Days Qty: 2 0RF Rx Instructions: Start after 7.5mg Zepbound 15 mg/0.5 mL pen injector 15 mg SUBCUT Q7D 84 Days Qty: 6 0RF Rx Instructions: Start after 10mg estradiol 1 mg tablet See Rx Instructions .ROUTE .COMPLEX Qty: 90 1RF Dose Instruction: Take 1 tablet by mouth in the evening Rx Instructions: Take 1 tablet by mouth in the evening hydrocodone-acetaminophen 10-325 mg tablet 1 tab PO Q4H PRN (Reason: pain) 5 Days Qty: 30 0RF Discharge Orders: Discharge ED (Routine); Ordered 11/21/24 Ordered By: Santos Pedro Referrals: Ayo Ovalles MD [Primary Care Provider, Family Practice] - 1-3 days Patient Instructions: Epidural Blood Patch (DC), Opioid Safety, Pain Management Activity Restrictions/Additional Instructions: Return for any problems continue an elevated level of caffeine intake for 24 hours Stand Alone Forms: Work/School Release Print Language: Israeli Coding Level of Care Code ED General Passenger Agent for Chg Fwd Documented by User: Santos Pedro DO 11/22/24 04:40 HPI - Headache General: Chief Complaint: Headache Stated Complaint: headache, nausea Time Seen by Provider: 11/21/24 17:27 Related Data Previous Rx's ?Medication ?Instructions ?Recorded escitalopram oxalate 10 mg tablet 10 mg PO DAILY #90 tabs 12/11/23 estradiol 1 mg tablet See Rx Instructions .Route 11/11/24 .COMPLEX #90 tabs tirzepatide (weight loss) 10 10 mg (0.5 mL) SUBCUT Q7D 4 weeks 11/17/24 mg/0.5 mL subcutaneous pen #2 mL injector (Zepbound) tirzepatide (weight loss) 15 15 mg (0.5 mL) SUBCUT Q7D 12 weeks 11/17/24 mg/0.5 mL subcutaneous pen #6 mL injector (Zepbound) tirzepatide (weight loss) 2.5 2.5 mg (0.5 mL) SUBCUT Q7D 4 weeks 11/17/24 mg/0.5 mL subcutaneous pen #2 mL injector (Zepbound) tirzepatide (weight loss) 5 mg/0.5 5 mg (0.5 mL) SUBCUT Q7D 4 weeks 11/17/24 mL subcutaneous pen injector #2 mL (Zepbound) tirzepatide (weight loss) 7.5 7.5 mg (0.5 mL) SUBCUT Q7D 4 weeks 11/17/24 mg/0.5 mL subcutaneous pen #2 mL injector (Zepbound) hydrocodone 10 mg-acetaminophen 1 tab PO Q4H PRN pain 5 days #30 11/19/24 325 mg tablet tabs hydrocodone 5 mg-acetaminophen 325 1 tab PO Q8H PRN pain #7 tabs 11/21/24 mg tablet Allergies Allergy/AdvReac Type Severity Reaction Status Date / Time morphine AdvReac [id number] Verified 11/17/24 07:53 take hydrocodone PFSH ED PFSH: Medical History No pertinent past medical history Denies diabetes, asthma, hypertension, seizures, DVT/PE PCP: Dr. Ovalles History of endometriosis Pain and dyspareunia---suppressive hormones did not work and she ended up having TLH BSO in March 2020 and is currently on hormone replacement therapy Anxiety and depression Surgical History S/P appendectomy 02/2020---laparoscopic performed by Dr. Dong History of tonsillectomy and adenoidectomy 09/09/05-tonsillectomy and adeniodectomy. dx: obstructive sleep apnea symptoms secondary to adenotonsillar hypertrophy. Performed at Dr Mayorga at [facility] in [place], [place] History of laparoscopy Diagnostic laparoscopy with peritoneal biopsies done on 07/13/[address] Plaza at [facility] for chronic pelvic pain. During surgery signs of endometriosis-stage I were noted. Biopsies were done on the peritoneum which showed connective tissue without histopathological changes. Ovarian biopsy done showed hemorrhagic cysts consistent with endometriosis. No postoperative complications noted. History of tubal ligation 2017, at time of cesarian section History of delivery X 2 2010-Performed by Dr Mcgovern at [facility] in [place], [place] 2017-performed by Dr. Ovalles at [facility] in [place] History of hysterectomy Total laparoscopic hysterectomy, bilateral salpingo-oophorectomy , cystoscopy for chronic pelvic pain and endometriosis on 03/23/[address] Plaza at [facility]. Pathology showed 174 g uterus with cervix with nabothian cysts and focal endometriosis on the peritoneum. The endometrium showed proliferative endometrium with adenomyosis in the myometrium. Bilateral tubes were benign with the left ovary showing an endometrioma and the right ovary being benign. Family History Mother Hypertension Stroke Family/Other Ovarian cancer maternal aunt, paternal aunt. 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 History remarkable for likely spinal puncture headache. CBC and BMP are not remarkable. She is given Toradol, and Percocet here with some improvement. Consulted anesthesia. They were graciously amenable to come evaluate the patient. She received a blood patch at the bedside, with resolution of her headache around an hour to an hour and a half later. At that point she wished to go home. Short course of pain medication for any residual pain. Return for any worsening or new symptoms. Lab Data 11/21/24 17:13 11/21/24 17:13 Laboratory Results WBC 6.93 10^3/uL (3.29-11.43) 11/21/24 17:13 RBC 4.39 10^6/uL (3.85-5.65) 11/21/24 17:13 Hgb 13.50 g/dL (11.27-16.99) 11/21/24 17:13 Hct 40.6 % (36-47) 11/21/24 17:13 MCV 92.5 fl (85-98) 11/21/24 17:13 MCH 30.8 pg (27-33) 11/21/24 17:13 MCHC 33.3 g/dL (30-55) 11/21/24 17:13 RDW 11.9 % (12.1-15.1) L 11/21/24 17:13 Plt Count 218 10^3/cmm (157-399) 11/21/24 17:13 MPV 10.5 fL (7.4-10.4) H 11/21/24 17:13 Neut % (Auto) 58.8 % 11/21/24 17:13 Lymph % (Auto) 30.4 % 11/21/24 17:13 [place] % (Auto) 6.9 % 11/21/24 17:13 Eos % (Auto) 2.7 % 11/21/24 17:13 Baso % (Auto) 0.9 % 11/21/24 17:13 Neut # (Auto) 4.07 10^3/uL (1.8-7.7) 11/21/24 17:13 Lymph # (Auto) 2.1 10^3/uL (0.8-4.8) 11/21/24 17:13 [place] # (Auto) 0.5 10^3/uL (0.2-0.9) 11/21/24 17:13 Eos # (Auto) 0.2 10^3/uL (0.0-0.8) 11/21/24 17:13 Baso # (Auto) 0.1 10^3/uL (0.0-0.1) 11/21/24 17:13 Nucleated RBC % (auto) 0 % 11/21/24 17:13 Nucleated RBCs # 0.0 /100WBC 11/21/24 17:13 Sodium 141 mmol/L (136-145) 11/21/24 17:13 Potassium 3.9 mmol/L (3.5-5.1) 11/21/24 17:13 Chloride 105 mmol/L (98-107) 11/21/24 17:13 Carbon Dioxide 26 mmol/L (22-29) 11/21/24 17:13 Anion Gap 13.9 (5-19) 11/21/24 17:13 BUN 9 mg/dL (6-20) 11/21/24 17:13 Creatinine 1.0 mg/dL (0.5-0.9) H 11/21/24 17:13 GFR Calculation 63.1 mL/min (90-130) L 11/21/24 17:13 Glucose 70 mg/dL (65-115) 11/21/24 17:13 Calculated Osmolality 289 mOsm/kg (285-295) 11/21/24 17:13 Calcium 9.4 mg/dL (8.5-10.5) 11/21/24 17:13 Total Bilirubin 0.2 mg/dL (0.15-1.2) 11/21/24 17:13 AST 14 U/L (0-32) 11/21/24 17:13 ALT 12 U/L (0-33) 11/21/24 17:13 Alkaline Phosphatase 59 U/L (35-105) 11/21/24 17:13 Total Protein 6.8 g/dL (6.6-8.7) 11/21/24 17:13 Albumin 4.1 g/dL (3.5-5.2) 11/21/24 17:13 Globulin 2.7 g/dL (1.3-4.6) 11/21/24 17:13 No radiology studies performed this visit Discharge Plan Discharge Patient Disposition: Home Clinical Impression: Spinal puncture headache Condition: Stable Prescriptions: New hydrocodone-acetaminophen 5-325 mg tablet 1 tab PO Q8H PRN (Reason: pain) Qty: 7 0RF No Action escitalopram oxalate 10 mg tablet 10 mg PO DAILY Qty: 90 3RF Zepbound 2.5 mg/0.5 mL pen injector 2.5 mg SUBCUT Q7D 28 Days Qty: 2 0RF Zepbound 5 mg/0.5 mL pen injector 5 mg SUBCUT Q7D 28 Days Qty: 2 0RF Rx Instructions: Start after 4 weeks of 2.5mg Zepbound 7.5 mg/0.5 mL pen injector 7.5 mg SUBCUT Q7D 28 Days Qty: 2 0RF Rx Instructions: Start after 5mg Zepbound 10 mg/0.5 mL pen injector 10 mg SUBCUT Q7D 28 Days Qty: 2 0RF Rx Instructions: Start after 7.5mg Zepbound 15 mg/0.5 mL pen injector 15 mg SUBCUT Q7D 84 Days Qty: 6 0RF Rx Instructions: Start after 10mg estradiol 1 mg tablet See Rx Instructions .ROUTE .COMPLEX Qty: 90 1RF Dose Instruction: Take 1 tablet by mouth in the evening Rx Instructions: Take 1 tablet by mouth in the evening hydrocodone-acetaminophen 10-325 mg tablet 1 tab PO Q4H PRN (Reason: pain) 5 Days Qty: 30 0RF Discharge Orders: Discharge ED (Routine); Ordered 11/21/24 Ordered By: Santos Pedro Referrals: Ayo Ovalles MD [Primary Care Provider, Family Practice] - 1-3 days Patient Instructions: Epidural Blood Patch (DC), Opioid Safety, Pain Management Activity Restrictions/Additional Instructions: Return for any problems continue an elevated level of caffeine intake for 24 hours Stand Alone Forms: Work/School Release Print Language: Israeli Coding Level of Care Code ED General Passenger Agent for Carlota Merino
[2024-11-21 17:31] LABS: Basophils # 0.1 10^3/uL (0.0-0.1); Basophils % 0.9 %; Eosinophils # 0.2 10^3/uL (0.0-0.8); Eosinophils % 2.7 %; Hematocrit 40.6 % (36-47); Lymphocytes # 2.1 10^3/uL (0.8-4.8); Lymphocytes % 30.4 %; Mean Corpuscular HGB Conc 33.3 g/dL (30-55); Mean Corpuscular Hemoglobin 30.8 pg (27-33); Mean Corpuscular Volume 92.5 fl (85-98); Mean Platelet Volume 10.5 fL (7.4-10.4); Monocytes # 0.5 10^3/uL (0.2-0.9); Monocytes % 6.9 %; Neutrophils # 4.07 10^3/uL (1.8-7.7); Neutrophils % 58.8 %; Nucleated Red Blood Cells % 0 %; Platelet Count 218 10^3/cmm (157-399); Red Blood Count 4.39 10^6/uL (3.85-5.65); Red Cell Distribution Width 11.9 % (12.1-15.1); White Blood Count 6.93 10^3/uL (3.29-11.43)
[2024-11-21 17:52] LABS: Alanine Aminotransferase 12 U/L (0-33); Albumin Level 4.1 g/dL (3.5-5.2); Alkaline Phosphatase 59 U/L (35-105); Anion Gap 13.9 (5-19); Aspartate Amino Transferase 14 U/L (0-32); Blood Urea Nitrogen 9 mg/dL (6-20); Calcium 9.4 mg/dL (8.5-10.5); Carbon Dioxide 26 mmol/L (22-29); Chloride 105 mmol/L (98-107); Creatinine Clr Calc Pharmacy 72.5722; Globulin 2.7 g/dL (1.3-4.6); Glomerular Filtration Rate 63.1 mL/min (90-130); Glucose 70 mg/dL (65-115); Osmolality Calculated 289 mOsm/kg (285-295); Potassium 3.9 mmol/L (3.5-5.1); Sodium 141 mmol/L (136-145); Total Bilirubin 0.2 mg/dL (0.15-1.2); Total Protein 6.8 g/dL (6.6-8.7)
[2024-11-21] MEDS: ketorolac 30 mg/mL INJ IVP (18:20)
[2024-11-21 18:22] VITALS: BP 113/86; PULSE 53; O2SAT 100
--- NOTE | 2024-11-21 19:01 | ANES.PREANE2 ---
Pre-Anesthetic Assessment Height/Weight: Height 5 ft 2 in Weight 157 lb Temp Pulse Resp BP Pulse Ox O2 Del Method 98.3 F 53 L 16 113/86 100 Room Air 11/21/24 16:33 11/21/24 18:22 11/21/24 16:33 11/21/24 18:22 11/21/24 18:22 11/21/24 18:22 Anesthetic Plan Other: I was contacted by Dr. Pedro from the ER about patient having possible postdural puncture headache Per chart review, patient had a spinal tap performed by Dr. Dial on Friday. This was performed for further evaluation for benign intracranial hypertension Patient has been struggling with chronic headaches practically 13/01 for the last few months Upon evaluation today patient states her headache is a 2 out of 10 when lying flat and increases to an 8 out of 10 when sitting or standing Patient also has bilateral papilledema which was present prior to spinal tap Labs stable today, vital stable Extensively discussed treatment options for post dural puncture headache, patient would like to proceed with blood patch at this time Medications/Allergies Home Medications ?Medication ?Instructions ?Recorded ?Confirmed ?Last Taken ?Type escitalopram oxalate 10 mg tablet 10 mg PO DAILY #90 tabs 12/11/23 11/17/24 Unknown Rx estradiol 1 mg tablet See Rx Instructions .Route 11/11/24 11/17/24 Unknown Rx .COMPLEX #90 tabs tirzepatide (weight loss) 10 10 mg (0.5 mL) SUBCUT Q7D 4 weeks 11/17/24 11/17/24 Unknown Rx mg/0.5 mL subcutaneous pen #2 mL injector (Zepbound) tirzepatide (weight loss) 15 15 mg (0.5 mL) SUBCUT Q7D 12 weeks 11/17/24 11/17/24 Unknown Rx mg/0.5 mL subcutaneous pen #6 mL injector (Zepbound) tirzepatide (weight loss) 2.5 2.5 mg (0.5 mL) SUBCUT Q7D 4 weeks 11/17/24 11/17/24 Unknown Rx mg/0.5 mL subcutaneous pen #2 mL injector (Zepbound) tirzepatide (weight loss) 5 mg/0.5 5 mg (0.5 mL) SUBCUT Q7D 4 weeks 11/17/24 11/17/24 Unknown Rx mL subcutaneous pen injector #2 mL (Zepbound) tirzepatide (weight loss) 7.5 7.5 mg (0.5 mL) SUBCUT Q7D 4 weeks 11/17/24 11/17/24 Unknown Rx mg/0.5 mL subcutaneous pen #2 mL injector (Zepbound) hydrocodone 10 mg-acetaminophen 1 tab PO Q4H PRN pain 5 days #30 11/19/24 Unknown Rx 325 mg tablet tabs Allergies Allergy/AdvReac Type Severity Reaction Status Date / Time morphine AdvReac [id number] Verified 11/17/24 07:53 take hydrocodone PFSH Anesthesia Medical History No pertinent past medical history Denies diabetes, asthma, hypertension, seizures, DVT/PE PCP: Dr. Ovalles History of endometriosis Pain and dyspareunia---suppressive hormones did not work and she ended up having TLH BSO in March 2020 and is currently on hormone replacement therapy Anxiety and depression Surgical History S/P appendectomy 02/2020---laparoscopic performed by Dr. Dong History of tonsillectomy and adenoidectomy 09/09/05-tonsillectomy and adeniodectomy. dx: obstructive sleep apnea symptoms secondary to adenotonsillar hypertrophy. Performed at Dr Mayorga at [facility] in [place], [place] History of laparoscopy Diagnostic laparoscopy with peritoneal biopsies done on 07/13/[address] Plaza at [facility] for chronic pelvic pain. During surgery signs of endometriosis-stage I were noted. Biopsies were done on the peritoneum which showed connective tissue without histopathological changes. Ovarian biopsy done showed hemorrhagic cysts consistent with endometriosis. No postoperative complications noted. History of tubal ligation 2017, at time of cesarian section History of delivery X 2 2010-Performed by Dr Mcgovern at [facility] in [place], [place] 2017-performed by Dr. Ovalles at [facility] in [place] History of hysterectomy Total laparoscopic hysterectomy, bilateral salpingo-oophorectomy , cystoscopy for chronic pelvic pain and endometriosis on 03/23/[address] Plaza at [facility]. Pathology showed 174 g uterus with cervix with nabothian cysts and focal endometriosis on the peritoneum. The endometrium showed proliferative endometrium with adenomyosis in the myometrium. Bilateral tubes were benign with the left ovary showing an endometrioma and the right ovary being benign. Family History Mother Hypertension Stroke Family/Other Ovarian cancer maternal aunt, paternal aunt. 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
[2024-11-21 19:40] VITALS: BP 127/110; PULSE 60; O2SAT 100
[2024-11-21] MEDS: HYDROcodone-acetaminophen 5-325 mg Tablet 2 TAB PO (19:41)
--- NOTE | 2024-11-21 19:45 | ANES.PROC ---
Anesthesia Procedures Procedure/Date: 11/21/24 Epidural: Time Out Performed: Yes Consents Signed: Procedure Consent Consent: requested by attending/covering physician and from patient Lumbar Level: L3-L4 Epidural position: sitting Additional Comments: Patient was set up, ChloraPrep was used to prep the skin. 1% lidocaine was used to numb injection area. An 18-gauge epidural needle was then introduced until inra-ej-[id number] was received around 8 cm. 10 cc of blood was then drawn sterilely by assisting nurse. 10 cc of patient's own blood was then injected into the epidural space until patient stated the pressure was too much to proceed. Epidural needle was then removed and patient was laid down flat. Discussed with patient that at this point there are not many other treatment options from my standpoint. If the blood patch does not work, supportive care would be suggested until patient has dura healed on its own. Discussed with patient that if symptoms proceed past 10 days, she should reach out to Dr. Dial for further evaluation
[2024-11-21 20:30] VITALS: BP 115/88; PULSE 66; O2SAT 99
[2024-11-21 21:14] VITALS: BP 115/88; PULSE 63; O2SAT 99
== END 2024-11-21 21:15 | disposition home or self-care (01) ==
PROVIDERS: Family Medicine; Emergency Provider Emergency Medicine; PCP Family Medicine
DX: G97.1 Other reaction to spinal and lumbar puncture (principal); F17.290 Nicotine dependence, other tobacco product, uncomplicated; R51.9 Headache, unspecified
CPT/HCPCS: 36415; 80053; 85025; 96374; 99284; J1885; J9999